=== PATIENT | female | born 1935 | race Caucasian/White ===

== ENCOUNTER 2017-02-02 05:17 | Inpatient (IN) | payer OTHER ==
[2017-01-21 10:52] VITALS: BMI 38.0
--- NOTE | 2017-01-21 11:26 | PAT Medication Instructions ---
Service Date Jan 21, 2017. Current Home Medication List Aspirin (Aspirin Ec), 81 MG PO HS Carvedilol (Coreg), 12.5 MG PO BID Cyanocobalamin (Vitamin B12), 1,000 MCG PO QAM Fish Oil ([place]-3), 1,000 MG PO QAM Hydrocodone/Acetaminophen 5MG/325MG ([place] 5MG/325MG), 1 TABLET PO BID PRN for N Lorazepam (Ativan), 0.5 MG PO HS PRN for RN Pravastatin (Pravachol ), 20 MG PO QPM [Losartan Hctz], 1 TAB PO QAM [Slow Release Iron], 1 TAB PO QAM Medication Instructions For Your Scheduled Surgery - Hold the following medications 2 weeks prior to surgery: Fish Oil ([place]-3), 1,000 MG PO QAM - Hold the following medications the morning of surgery: Cyanocobalamin (Vitamin B12), 1,000 MCG PO QAM [Losartan Hctz], 1 TAB PO QAM [Slow Release Iron], 1 TAB PO QAM - Take the following medications the morning of surgery with a sip of water: Carvedilol (Coreg), 12.5 MG PO BID Hydrocodone/Acetaminophen 5MG/325MG ([place] 5MG/325MG), 1 TABLET PO BID PRN (if needed, can take up to 4 hours before surgery) Lorazepam (Ativan), 0.5 MG PO HS PRN (if needed) - Take the following medications as scheduled the night before surgery: Aspirin (Aspirin Ec), 81 MG PO HS Carvedilol (Coreg), 12.5 MG PO BID Hydrocodone/Acetaminophen 5MG/325MG ([place] 5MG/325MG), 1 TABLET PO BID PRN (if needed, can take up to 4 hours before surgery) Lorazepam (Ativan), 0.5 MG PO HS PRN for RN Pravastatin (Pravachol ), 20 MG PO QPM If you have any questions please call us at [phone] or [phone] or [phone]
--- NOTE | 2017-01-21 12:11 | DIAGNOSTIC IMAGING REPORT ---
CHEST 2 VIEWS ROUTINE CLINICAL HISTORY: Preoperative chest COMPARISON STUDY: No previous studies for comparison. FINDINGS: The heart is normal in size. There is a retrocardiac opacity persist with a hiatal hernia. There is no failure. There is no focal pulmonary consolidation. There are no pleural effusions. There is a linear band within the right midlung zone likely representing subsegmental atelectasis.[ IMPRESSION: No active disease in the chest. Electronically signed by: Ovidio Foster M.D. 01/21/2017 12:10 PM Dictated Date/Time: 01/21/2017 12:09 PM
[2017-01-21 12:14] LABS: BASO % 0.9 %; BASO ABS # 0.04 K/uL (0-0.2); COMPLETE YES; EOS % 3.8 %; HEMATOCRIT 35.8 % (37-47); IG% 0.2 %; LYMPH % 24.6 %; LYMPH ABS # 1.11 K/uL (1.2-3.4); MEAN CELL VOLUME 95.5 fL (80-100); MEAN CORPUSCULAR HEMOGLOBIN 30.4 pg (25-34); MEAN CORPUSCULAR HGB CONC 31.8 g/dl (32-36); MEAN PLATELET VOLUME 10.5 fL (7.4-10.4); MONO % 6.9 %; NEUT % 63.6 %; PLATELET COUNT 181 K/uL (130-400); RED BLOOD COUNT 3.75 M/uL (4.2-5.4); WHITE BLOOD COUNT 4.52 K/uL (4.8-10.8)
[2017-01-21 13:45] LABS: BUN/CREATININE RATIO 18.9 (10-20); CALCIUM 9.3 mg/dl (8.5-10.1); CREATININE 1.2 mg/dl (0.60-1.20); POTASSIUM 4.6 mmol/L (3.5-5.1)
[2017-02-02] VITALS (9 sets, daily range): BP systolic 145–169; BP diastolic 65–82; PULSE 48–62; TEMP 36.3–36.5; O2SAT 96–100; Ht 160 cm; Wt 98.2 kg
[~2017-02-02] VITALS: Ht 160 cm; Wt 98.2 kg
[~2017-02-02 05:17] MED LIST: ASPI81TA28 PO; CARV12.52 PO; CYAN100020 PO; FERR143T5 PO; HYDR-5688 PO; LORA-741 PO; LOSA100T26 PO; OMEG10007 PO; PRAV20TA PO
[2017-02-02] MEDS ORDERED: CEFAZOLIN 2000 MG/60 ML D5W IV SCH (06:00)
[2017-02-02] MEDS ORDERED: LACTATED RINGER'S 1000ML 1,000 ML IV SCH (06:00)
[2017-02-02] MEDS ORDERED: MIDAZOLAM HCL 1 MG/ML 2ML VIAL ONE (06:33)
[2017-02-02] MEDS ORDERED: FENTANYL CITRATE INJ 50 MCG/1 ML 2 ML VIAL ONE ×3 (06:33→09:22)
[2017-02-02] MEDS ORDERED: BACITRACIN 50000 UNIT VIAL ONE (06:49)
[2017-02-02] MEDS ORDERED: BUPIVACAINE/EPINEPHRINE 0.5% MPF 1:200,000 30 ML VIAL ONE (06:49)
[2017-02-02] MEDS ORDERED: ALBUMIN HUMAN 5% 12.5 GM/250 ML VIAL IV ONE (07:11)
--- NOTE | 2017-02-02 07:28 | History & Physical Bridge Note ---
H&P Re-Evaluation Bridge Note: I have examined the patient, reviewed the History & Physical and in the interval since the performance of the History & Physical I have noted the following changes of clinical significance: No changes noted
--- NOTE | 2017-02-02 07:29 | History and Physical ---
History & Physical Date Feb 02, 2017. Chief Complaint Back and bilateral leg pain History of Present Illness The patient is a 81 year old female with complaints of chronic back and bilateral leg pain Additional History Hepatic Disease: No Endocrine Disorder: No Kidney Disease: No Hypertension: Yes Heart Disease: No Bleeding Tendencies: No Infectious Diseases: No Allergies Coded Allergies: Ciprofloxacin (Verified Allergy, Unknown, ITCHY RASH, 02/02/17) Home Medications Scheduled Aspirin (Aspirin Ec), 81 MG PO HS Carvedilol (Coreg), 12.5 MG PO BID Cyanocobalamin (Vitamin B12), 1,000 MCG PO QAM Ferrous Sulfate (Iron Slow Release), 1 TAB PO QAM Fish Oil ([place]-3), 1,000 MG PO QAM Hctz/Losartan (Hyzaar 12.5MG/100MG), 1 TAB PO QAM Pravastatin (Pravachol ), 20 MG PO QPM Scheduled PRN Hydrocodone/Acetaminophen 5MG/325MG ([place] 5MG/325MG), 1 TABLET PO BID PRN for N Lorazepam (Ativan), 0.5 MG PO HS PRN for RN Physical Examination Skin: warm/dry, no rash Eyes: normal inspection, EOMI, sclerae normal ENT: normal ENT inspection, pharynx normal Head: normocephalic, atraumatic Neck: supple, no adenopathy, trachea midline Respiratory/Chest: lungs clear, normal breath sounds, no respiratory distress Cardiovascular: regular rate, rhythm, no edema, no murmur Abdomen / GI: normal bowel sounds, non tender Back: normal inspection Extremities: normal inspection, normal range of motion Neurologic/Psych: no motor/sensory deficits, alert, normal reflexes, oriented x 3 Diagnosis Lumbar spinal stenosis Plan of Treatment Lumbar decompression fusion L3 to S1
[2017-02-02] MEDS ORDERED: HYDROmorphone INJ 2 MG/ML SYR/VIAL ONE ×3 (08:03→10:33)
[2017-02-02] MEDS ORDERED: PHENYLEPHRINE 100MCG/ML 5ML SYR IV PRN (08:15)
[2017-02-02] MEDS ORDERED: ONDANSETRON INJ 2 MG/ML 2 ML VIAL IV PRN ×2 (08:15→10:15)
[2017-02-02] MEDS ORDERED: ATROPINE SULFATE 0.1 MG/ML 5ML SYR IV PRN (08:15)
[2017-02-02] MEDS ORDERED: EpHEDrine SULFATE INJ 50 MG/ML AMP IV PRN (08:15)
[2017-02-02] MEDS ORDERED: HYDROmorphone INJ 2 MG/ML SYR/VIAL IV PRN (08:15)
[2017-02-02] MEDS ORDERED: DEXAMETHASONE SOD INJ 4 MG/ML VIAL ONE (09:52)
[2017-02-02] MEDS ORDERED: LIDOCAINE HCL 2% 2 ML VIAL (20MG/ML) ONE (09:52)
[2017-02-02] MEDS ORDERED: ROCURONIUM BROMIDE 10 MG/ML 5 ML VIAL IV ONE (09:52)
[2017-02-02] MEDS ORDERED: PROPOFOL IV EMULSION 10 MG/ML 20 ML VIAL IV ONE (09:52)
[2017-02-02] MEDS ORDERED: FLOSEAL HEMOSTATIC MATRIX 10ML TOP ONE (09:56)
[2017-02-02] MEDS ORDERED: GLYCOPYRROLATE INJ 0.2 MG/ML VIAL ONE (09:59)
[2017-02-02] MEDS ORDERED: NEOSTIGMINE METHYLSULFATE 1 MG/ML 10ML VIAL ONE (09:59)
[2017-02-02] MEDS ORDERED: EpHEDrine SULFATE 50MG/5ML SYR ONE (09:59)
[2017-02-02] MEDS ORDERED: ONDANSETRON INJ 2 MG/ML 2 ML VIAL ONE (09:59)
[2017-02-02] MEDS ORDERED: hydrOXYzine HCL 25 MG TAB PO PRN (10:15)
[2017-02-02] MEDS ORDERED: ACETAMINOPHEN IV 100 ML IV PRN (10:15)
[2017-02-02] MEDS ORDERED: NALOXONE HCL 0.4 MG/1 ML VIAL/CARP IV PRN ×2 (10:15)
[2017-02-02] MEDS ORDERED: DO NOT ADMINISTER PNEUMOCOCCAL VACCINE PRN ×2 (10:15)
[2017-02-02] MEDS ORDERED: ALUMINUM/MAGNESIUM SUSP 30 ML UDC PO PRN (10:15)
[2017-02-02] MEDS ORDERED: LORAZEPAM 0.5 MG TAB PO PRN (10:15)
[2017-02-02] MEDS ORDERED: MAGNESIUM HYDROXIDE SUSP 30 ML UDC PO PRN (10:15)
[2017-02-02] MEDS ORDERED: PROMETHAZINE HCL INJ 12.5 MG in SODIUM CHLORIDE 0.9% 50ML 50 ML IV PRN (10:15)
[2017-02-02] MEDS ORDERED: METOCLOPRAMIDE HCL INJ 5 MG/ML 2 ML VIAL IV PRN (10:15)
[2017-02-02] MEDS ORDERED: FAMOTIDINE 20 MG TAB PO PRN (10:15)
[2017-02-02] MEDS ORDERED: LORAZEPAM INJ 0.5 MG in SYRINGE 0 ML IV PRN (10:15)
[2017-02-02] MEDS ORDERED: SOD PHOSPHATE/SOD BIPHOSPHATE ENEMA 132 ML BTL PR PRN (10:15)
[2017-02-02] MEDS ORDERED: BISACODYL 10 MG SUPP PR PRN (10:15)
[2017-02-02] MEDS ORDERED: DO NOT ADMINISTER FLU VACCINE PRN ×3 (10:15)
[2017-02-02] MEDS ORDERED: SODIUM CHLORIDE 0.9% 1000ML 1,000 ML IV SCH (10:15)
--- NOTE | 2017-02-02 10:22 | [facility] Operative Report ---
Operative Report Operative Date Feb 02, 2017. Pre-Operative Diagnosis SPINAL STENOSIS Post-Operative Diagnosis SAME PREOP Procedure(s) Performed #1 lumbar decompression medial facetectomies foraminotomies L2 3 L3 4 L4 5 L5-S1. #2 posterior spinal fusion L3 4 L4 5 L5-S1. #3 placement posterior segmental instrumentation L3 to S1. #4 placement of locally harvested morcellized autograft in the posterior lateral gutters. #7 placement infuse collagen sponge commode Master graft in the posterior lateral gutters. Surgeon DR. BRO PYLE Geriatric Case Manager Surgeon(s) Janneth ESPINAL PAC Estimated Blood Loss 550ml Findings Severe spinal stenosis with spondylolisthesis Specimens NONE Description of Procedure Patient was met with preoperatively case discussed all questions were addressed. After informed consent obtained. The patient was taken back up suite underwent intubation placed in prone position the [place] table top Ugo frame. All bony prominences were well-padded eyes inspected to ensure no external pressure placed upon them. This point the lumbar spines prepped and draped nostril fashion. Sharp dissection with the assistance of Bovie cautery was performed onto an exposing the lamina and transverse processes of L3 L4-L5 and sacral alar bilaterally. From a caudal to cephalad fashion complete laminectomy of L5 L4 L3 partial laminectomy of L2 was performed addressing severe central lateral recessed foraminal stenosis. I did note incidental durotomy at the 45 level on the left where the bone had eroded through the dura. This repaired with a DuraGen patch and DuraSeal. Pedicle screws are then placed. Side rods were then locked in position. Cross-links were locked into position. The transverse processes of L3 L4-L5 and the sacral alar burred to subcortical bleeding bone. Infuse collagen sponge mask graft locally harvested morcellized autograft was placed in the posterior lateral gutters. 15 round DEUCE drain was inserted. Incision was closed with 1 Vicryl in the fascia 2-0 Vicryl subcutaneously for Monocryl for final skin closure Steri- Strip sterile dressing was placed. Patient we can taken to PACU stable condition. Please note Cheryl Mccormick was present at the past procedure involved in complex portions of the surgery and final skin closure. I attest to the content of the Intraoperative Record and any orders documented therein. Any exceptions are noted below.
--- NOTE | 2017-02-02 10:32 | DIAGNOSTIC IMAGING REPORT ---
LUMBAR SPINE 2 OR 3 VIEW CLINICAL HISTORY: 81 years-old Female presenting with L3-S1 DECOMPRESSION FUSION. TECHNIQUE: 2 fluoroscopic spot image(s) obtained as part of an intraoperative procedure. COMPARISON: None. FINDINGS/IMPRESSION: Posterior bilateral transpedicular screw and erasmo fixation of L3-S1. Grossly normal anatomic alignment. Please see surgical report for further details. Fluoroscopy dosage (mGy): Not available. Fluoroscopy time: 23 seconds. Number of fluoroscopic spot images: 2. Electronically signed by: Vasile Foster M.D. 02/02/2017 10:31 AM Dictated Date/Time: 02/02/2017 10:30 AM
[2017-02-02] MEDS ORDERED: HYDROmorphone HCL 0.5MG/ML 50 ML CASSETTE ONE (10:43)
--- NOTE | 2017-02-02 11:14 | Anesthesiology Progress Note ---
Anesthesia Post Op Note Date & Time Feb 02, 2017 at 11:14 Vital Signs Pain Intensity: 0 Vital Signs Past 12 Hours Date Time Temp Pulse Resp B/P (MAP) Pulse Ox O2 Delivery O2 Flow Rate FiO2 02/02/17 11:10 54 18 162/87 100 Nasal Cannula 4 02/02/17 11:00 57 20 155/61 100 Oxymask 10 02/02/17 10:50 61 18 157/68 100 Oxymask 10 02/02/17 10:41 36.3 71 16 138/59 100 Oxymask 10 02/02/17 06:07 36.5 60 20 162/77 99 Room Air Notes Mental Status: alert / awake / arousable, participated in evaluation Pt Amnestic to Procedure: Yes Nausea / Vomiting: adequately controlled Pain: adequately controlled Airway Patency, RR, SpO2: stable & adequate BP & HR: stable & adequate Hydration State: stable & adequate Anesthetic Complications: no major complications apparent
[2017-02-02] MEDS: SODIUM CHLORIDE 0.9% 1000ML 1,000 ML IV SCH ×3 (12:00→20:53)
[2017-02-02] MEDS: HYDROmorphone HCL 0.5MG/ML 50 ML CASSETTE IV PRN ×2 (15:16→22:52)
[2017-02-02] MEDS: CEFAZOLIN IV 2,000 MG in DEXTROSE 5% 50ML 50 ML IV SCH ×2 (16:58→23:38)
[2017-02-02] MEDS: DEXAMETHASONE INJ 6 MG in SYRINGE 0 ML IV SCH ×2 (16:59→23:38)
[2017-02-02] MEDS: DOCUSATE SODIUM/SENNA 50/8.6MG TAB PO SCH (20:53)
[2017-02-02] MEDS: CARVEDILOL 12.5 MG TAB PO SCH (20:54)
[2017-02-02] MEDS: PRAVASTATIN SOD 20 MG TAB PO SCH (20:54)
[2017-02-02] MEDS: ASPIRIN 81 MG ECTAB PO SCH (20:54)
[2017-02-03] VITALS (7 sets, daily range): BP systolic 117–182; BP diastolic 67–79; PULSE 54–74; TEMP 36.6–36.8; O2SAT 95–98
[2017-02-03] MEDS: SODIUM CHLORIDE 0.9% 1000ML 1,000 ML IV SCH (04:03)
[2017-02-03] MEDS ORDERED: HYDROmorphone INJ 0.5 MG/0.5 ML SYR IV PRN (06:00)
[2017-02-03] MEDS ORDERED: DC PCA SCH (06:00)
[2017-02-03] MEDS ORDERED: NURSING VERBAL MED ORDER ONE (06:00)
[2017-02-03] MEDS ORDERED: HYDROmorphone INJ 1 MG/ML SYR IV PRN (06:00)
[2017-02-03 06:06] LABS: HEMATOCRIT 26.9 % (37-47); IG% 0.1 %; LYMPH % 3.7 %; LYMPH ABS # 0.37 K/uL (1.2-3.4); MEAN CELL VOLUME 94.7 fL (80-100); MEAN CORPUSCULAR HGB CONC 32.7 g/dl (32-36); MEAN PLATELET VOLUME 10.5 fL (7.4-10.4); MONO % 2.7 %; NEUT % 93.5 %; PLATELET COUNT 135 K/uL (130-400); RED BLOOD COUNT 2.84 M/uL (4.2-5.4); WHITE BLOOD COUNT 10.02 K/uL (4.8-10.8)
[2017-02-03 06:39] LABS: BUN/CREATININE RATIO 18.7 (10-20); CALCIUM 8.2 mg/dl (8.5-10.1); CREATININE 1.1 mg/dl (0.60-1.20); POTASSIUM 4.1 mmol/L (3.5-5.1)
[2017-02-03 07:20] LABS: COMPLETE YES
--- NOTE | 2017-02-03 08:41 | Clinical Documentation Query ---
NARCISA Faustin : CLINICAL DOCUMENTATION QUERY Patient is a 81 year old female who underwent lumbosacral decompression and posterior spinal fusion. Preoperative hemoglobin and hematocrit were 11.4 g/dl and 35.8%. POD #1, repeat values are 8.8 g/dl and 26.9%. EBL for the procedure was 550 ml's with subsequently documented losses totaling an additional 245 ml's to date. Patient is being monitored with serial hematology and I/O including drain outputs. In your clinical opinion is this patient being managed for: ( ) Acute blood loss anemia ( ) Not Agree ( ) Other explanation of clinical findings (Please Explain) ( ) Unable to determine (Please Define) ( ) Need to Discuss The medical record reflects the following clinical findings, treatment, and risk factors. Clinical Indicators: As above Treatment:Patient is being monitored with serial hematology and I/O including drain outputs Risk Factors:Acute perioperative blood losses Please clarify and document your clinical opinion in the progress notes and discharge summary. Terms such as "probable", "suspected", "likely", "questionable", "possible", or "still to be ruled out" are acceptable. IF IN AGREEMENT, YOU MUST DOCUMENT ABOVE DIAGNOSTIC STATEMENT IN DAILY PROGRESS NOTES AND DISCHARGE SUMMARY. This document is not part of the patient's record. Thank You, Noe Reyes, BETY [phone]
[2017-02-03] MEDS: DEXAMETHASONE INJ 6 MG in SYRINGE 0 ML IV SCH (08:51)
[2017-02-03] MEDS: LOSARTAN POTASSIUM 50 MG TAB PO SCH (08:54)
[2017-02-03] MEDS: CARVEDILOL 12.5 MG TAB PO SCH ×2 (08:54→20:54)
[2017-02-03] MEDS: HYDROCHLOROTHIAZIDE 25 MG TAB PO SCH (08:55)
[2017-02-03] MEDS: OXYCODONE HCL IR 5 MG TAB (IMMEDIATE RELEASE) PO PRN ×3 (08:57→18:42)
--- NOTE | 2017-02-03 12:52 | Progress Note ---
Progress Note Date of Service Feb 03, 2017. Progress Note Patient is postop day #1. She is relatively comfortable. She denies any nausea vomiting or headaches. On exam she is neurologically intact DEUCE drain decreasing appropriately. Assessment status post lumbar decompression fusion replant this time will maintain bed rest today. She may elevate the bed for meals. Pending her progress today we may initiate transfers from bed to chair beginning tomorrow.
--- NOTE | 2017-02-03 13:21 | Anesthesiology Progress Note ---
Anesthesia Post Op Note Date & Time Feb 03, 2017 at 13:20 Vital Signs Vital Signs Past 12 Hours Date Time Temp Pulse Resp B/P (MAP) Pulse Ox O2 Delivery O2 Flow Rate FiO2 02/03/17 11:50 36.7 54 20 122/70 (87) 95 Room Air 02/03/17 07:15 Room Air 02/03/17 07:14 36.7 63 19 151/75 (100) 96 Room Air 02/03/17 04:41 60 155/79 (104) 95 Room Air 02/03/17 04:05 36.7 66 18 182/67 (105) 95 Room Air Notes Mental Status: alert / awake / arousable, participated in evaluation Pt Amnestic to Procedure: Yes Nausea / Vomiting: adequately controlled Pain: adequately controlled Airway Patency, RR, SpO2: stable & adequate BP & HR: stable & adequate Hydration State: stable & adequate Anesthetic Complications: no major complications apparent
[2017-02-03] MEDS: PRAVASTATIN SOD 20 MG TAB PO SCH (20:54)
[2017-02-03] MEDS: DOCUSATE SODIUM/SENNA 50/8.6MG TAB PO SCH (20:54)
[2017-02-03] MEDS: ASPIRIN 81 MG ECTAB PO SCH (20:54)
[2017-02-04] MEDS: OXYCODONE HCL IR 5 MG TAB (IMMEDIATE RELEASE) PO PRN ×4 (02:11→19:06)
[2017-02-04] MEDS: POLYETHYLENE (MIRALAX) 17 GM PACK PO SCH ×4 (05:43→23:54)
[2017-02-04 07:01] VITALS: BP 150/84; PULSE 61; TEMP 36.4; O2SAT 96
--- NOTE | 2017-02-04 08:26 | Progress Note ---
Progress Note Date of Service Feb 04, 2017. Progress Note Patient's back pain only. She denies any leg pain. Denies any nausea vomiting or headaches. On exam she is excellent strength testing is comfortable and sitting up in bed. Assessment status post lumbar decompression fusion. Plan at this time we will initiate bed to chair transfers as well as bathroom privileges today. We'll change her dressing DC drain.
[2017-02-04] MEDS: CARVEDILOL 12.5 MG TAB PO SCH ×2 (09:11→21:15)
[2017-02-04] MEDS: LOSARTAN POTASSIUM 50 MG TAB PO SCH (09:11)
[2017-02-04] MEDS: HYDROCHLOROTHIAZIDE 25 MG TAB PO SCH (09:11)
[2017-02-04 09:15] VITALS: BP 140/79; PULSE 71
[2017-02-04] MEDS: ACETAMINOPHEN 500 MG TAB PO PRN (09:18)
[2017-02-04 15:21] VITALS: BP 123/74; PULSE 65; TEMP 36.5; O2SAT 97
[2017-02-04] MEDS: DOCUSATE SODIUM/SENNA 50/8.6MG TAB PO SCH (21:00)
[2017-02-04] MEDS: PRAVASTATIN SOD 20 MG TAB PO SCH (21:15)
[2017-02-04] MEDS: ASPIRIN 81 MG ECTAB PO SCH (21:15)
[2017-02-04 21:16] VITALS: BP 123/75; PULSE 61
[2017-02-04 22:54] VITALS: BP 109/66; PULSE 59; TEMP 36.3; O2SAT 97
[2017-02-05] MEDS: POLYETHYLENE (MIRALAX) 17 GM PACK PO SCH ×3 (06:14→17:52)
[2017-02-05] MEDS: OXYCODONE HCL IR 5 MG TAB (IMMEDIATE RELEASE) PO PRN ×4 (06:18→21:21)
[2017-02-05 07:13] VITALS: BP 119/72; PULSE 65; TEMP 36.7; O2SAT 97
[2017-02-05] MEDS: ACETAMINOPHEN 500 MG TAB PO PRN ×2 (08:03→15:39)
[2017-02-05] MEDS: LOSARTAN POTASSIUM 50 MG TAB PO SCH (09:37)
[2017-02-05] MEDS: HYDROCHLOROTHIAZIDE 25 MG TAB PO SCH (09:38)
[2017-02-05] MEDS: CARVEDILOL 12.5 MG TAB PO SCH ×2 (09:38→21:12)
[2017-02-05 09:47] VITALS: BP 111/65; PULSE 68
--- NOTE | 2017-02-05 12:49 | Progress Note ---
Progress Note Date of Service Feb 05, 2017. Progress Note Back pain is controlled. Leg pain markedly improved. She denies nausea vomiting or headache. She has positive flatus but no BM at this time. On exam she is in chair at bedside has excellent strength testing. Assessment status post lumbar decompression fusion. Planned this time we will initiate physical therapy today and advance as tolerated over the weekend.
[2017-02-05 15:36] VITALS: BP 119/72; PULSE 67; TEMP 36.5; O2SAT 96
[2017-02-05] MEDS: ASPIRIN 81 MG ECTAB PO SCH (21:13)
[2017-02-05] MEDS: DOCUSATE SODIUM/SENNA 50/8.6MG TAB PO SCH (21:13)
[2017-02-05] MEDS: PRAVASTATIN SOD 20 MG TAB PO SCH (21:13)
[2017-02-05 23:18] VITALS: BP 118/69; PULSE 68; TEMP 36.4; O2SAT 99
[2017-02-06] MEDS: POLYETHYLENE (MIRALAX) 17 GM PACK PO SCH
[2017-02-06 00:15] VITALS: O2SAT 99
[2017-02-06] MEDS: OXYCODONE HCL IR 5 MG TAB (IMMEDIATE RELEASE) PO PRN ×5 (02:35→20:44)
[2017-02-06] MEDS ORDERED: NURSING VERBAL MED ORDER ONE (04:30)
[2017-02-06] MEDS: HYDROCHLOROTHIAZIDE 25 MG TAB PO SCH (07:48)
[2017-02-06] MEDS: CARVEDILOL 12.5 MG TAB PO SCH ×2 (07:49→20:45)
[2017-02-06] MEDS: LOSARTAN POTASSIUM 50 MG TAB PO SCH (07:49)
[2017-02-06 07:54] VITALS: BP 154/81; PULSE 72; TEMP 36.6; O2SAT 95
--- NOTE | 2017-02-06 10:13 | Progress Note ---
Progress Note Date of Service Feb 06, 2017. Progress Note Patient is complaining of back pain only. Denies any leg pain denies any numbness or tingling. She denies any nausea vomiting or headache. She did have a bowel movement yesterday. She is ambulating the halls. On exam she is good strength testing. She sitting in a chair comfortably. Assessment status post multilevel lumbar decompression fusion. Planned this time we'll initiate physical therapy occupational therapy anticipate discharge early next week.
[2017-02-06] MEDS ORDERED: KETOROLAC TROMETHAMINE 15 MG/ML VIAL IV. ONE (10:30)
[2017-02-06 15:52] VITALS: BP 106/68; PULSE 62; TEMP 36.3; O2SAT 98
[2017-02-06] MEDS: KETOROLAC TROMETHAMINE 15 MG/ML VIAL IV. PRN (18:56)
[2017-02-06 19:09] VITALS: BP 103/63; PULSE 68; TEMP 36.4; O2SAT 98
[2017-02-06 20:42] VITALS: BP 108/65; PULSE 65
[2017-02-06] MEDS: ASPIRIN 81 MG ECTAB PO SCH (20:44)
[2017-02-06] MEDS: PRAVASTATIN SOD 20 MG TAB PO SCH (20:44)
[2017-02-06] MEDS: DOCUSATE SODIUM/SENNA 50/8.6MG TAB PO SCH (20:45)
[2017-02-06 23:10] VITALS: BP 129/76; PULSE 62; TEMP 36.3; O2SAT 98
[2017-02-07] VITALS (17 sets, daily range): BP systolic 85–130; BP diastolic 53–73; PULSE 62–74; TEMP 36.5–37; O2SAT 93–97
[2017-02-07] MEDS: OXYCODONE HCL IR 5 MG TAB (IMMEDIATE RELEASE) PO PRN ×4 (03:00→19:10)
[2017-02-07 06:24] LABS: HEMATOCRIT 23.6 % (37-47)
[2017-02-07] MEDS: LOSARTAN POTASSIUM 50 MG TAB PO SCH (09:00)
[2017-02-07] MEDS: CARVEDILOL 12.5 MG TAB PO SCH ×2 (09:00→21:12)
[2017-02-07] MEDS: HYDROCHLOROTHIAZIDE 25 MG TAB PO SCH (09:00)
[2017-02-07] MEDS: KETOROLAC TROMETHAMINE 15 MG/ML VIAL IV. PRN (19:09)
[2017-02-07] MEDS: PRAVASTATIN SOD 20 MG TAB PO SCH (21:11)
[2017-02-07] MEDS: ASPIRIN 81 MG ECTAB PO SCH (21:11)
[2017-02-07] MEDS: DOCUSATE SODIUM/SENNA 50/8.6MG TAB PO SCH (21:13)
[2017-02-08 07:00] VITALS: BP 140/83; PULSE 117; PULSE 64; TEMP 36.5; O2SAT 98
[2017-02-08 07:43] LABS: BASO % 0.2 %; BASO ABS # 0.01 K/uL (0-0.2); COMPLETE YES; EOS % 4.4 %; HEMATOCRIT 27.7 % (37-47); IG% 0.4 %; LYMPH % 13.5 %; LYMPH ABS # 0.77 K/uL (1.2-3.4); MEAN CELL VOLUME 90.8 fL (80-100); MEAN CORPUSCULAR HEMOGLOBIN 31.1 pg (25-34); MEAN CORPUSCULAR HGB CONC 34.3 g/dl (32-36); MEAN PLATELET VOLUME 10.1 fL (7.4-10.4); MONO % 11.6 %; NEUT % 69.9 %; PLATELET COUNT 139 K/uL (130-400); RED BLOOD COUNT 3.05 M/uL (4.2-5.4); WHITE BLOOD COUNT 5.71 K/uL (4.8-10.8)
[2017-02-08 07:44] VITALS: PULSE 64
[2017-02-08] MEDS ORDERED: RXC5 PO (07:50)
--- NOTE | 2017-02-08 07:51 | Discharge Instructions ---
Discharge Instructions Date of Service Feb 08, 2017. Admission Reason for Admission: Lumbar Spinal Stenosis Discharge Discharge Diagnosis / Problem: post op lumbar fusion Discharge Goals Goal(s): Decrease discomfort, Improve function, Increase independence Activity Recommendations Activity Limitations: per Instructions/Follow-up section Lifting Limitations: no more than 5 pounds Shower/Bathe: tomorrow . Current Hospital Diet Patient's current hospital diet: Regular Diet Discharge Diet Recommended Diet: Regular Diet Procedures Procedures Performed: #1 lumbar decompression medial facetectomies foraminotomies L2 3 L3 4 L4 5 L5-S1. #2 posterior spinal fusion L3 4 L4 5 L5-S1. #3 placement posterior segmental instrumentation L3 to S1. #4 placement of locally harvested morcellized autograft in the posterior lateral gutters. #7 placement infuse collagen sponge commode Master graft in the posterior lateral gutters. Pending Studies Studies pending at discharge: no Medical Emergencies . Who to Call and When: Medical Emergencies: If at any time you feel your situation is an emergency, please call 911 immediately. . Non-Emergent Contact Non-Emergency issues call your: Primary Care Provider, Surgeon . "Provider Documentation" section prepared by Cheryl Mccormick. . VTE Core Measure Inpt VTE Proph given/why not?: Mikhail So
--- NOTE | 2017-02-08 07:53 | Discharge Instructions ---
Discharge Instructions Date of Service Feb 08, 2017. Admission Reason for Admission: Lumbar Spinal Stenosis Discharge Discharge Diagnosis / Problem: post op lumbar fusion Discharge Goals Goal(s): Decrease discomfort, Improve function, Increase independence Activity Recommendations Activity Limitations: per Instructions/Follow-up section Lifting Limitations: no more than 5 pounds Shower/Bathe: tomorrow . Instructions / Follow-Up Instructions / Follow-Up ACTIVITY RECOMMENDATIONS: SELF CARE INSTRUCTIONS AFTER THORACIC/LUMBAR FUSIONS 1. You may walk to your tolerance. It is good exercise for your legs and back. Expect some back and intermittent leg aches and pains. 2. You may perform "counter-top" level activities (make a sandwich, keenan with a project, etc.). 3. No bending or lifting of more than 10 pounds or back twisting of any nature (roll like a log when turning in bed). 4. You may ride in a car for 20-30 minutes at a time. No driving until after your first visit with your doctor. 5. Frequent changes of position and restricting sitting to 30 minutes at a time will help limit the amount of back spasms and stiffness you may experience. 6. You may discontinue the use of ambulatory aids (cane, crutches, etc.) once your strength and confidence allow. 7. You may architectural administrative assistant the shower and let water strike your incision when you arrive home at least once daily. Do not take a tub bath, sit in a hot tub or go into a swimming pool until after your first recheck in the office. SPECIAL CARE INSTRUCTIONS: VERY IMPORTANT TO READ AND REVIEW A. Your surgical incision has been closed with a cosmetic suture under the skin that will dissolve in about 6 weeks. In 14 days, you can use a pair of clean scissors and cut the suture that is left outside of the skin at the ends of your incision. 1. The small skin tapes can be removed 7 days after surgery if they have not fallen off by that point. 2. You may keep the wound open to air as much as possible to promote healing after post-op day number 5 unless told otherwise by your doctor. 3. If you think the wound looks like it is becoming infected (redness or worsening drainage) and/or you are experiencing fever, chill or worsening back pain and muscle spasms, contact the office so that we may evaluate you as soon as possible. B. Complications are uncommon, but please contact us if you have any signs or symptoms of: 1. wound infection (fever higher than 102.5 degrees F, redness, separation of wound, drainage, or increasing pain from the incision) 2. blood clots in legs (pain, swelling, redness and warmth in legs) 3. urinary tract infection (fever higher than 102.5 degrees F, burning upon urination or increased frequency of urination) 4. nerve problems (inability to walk on your toes or heels, numbness, loss of bowel or bladder control) 5. any other symptoms that concern you C. Please call the office at if you have any concerns or questions about your operation or recovery. D. No smoking! Smoking drastically decreases the chance of a solid fusion. E. Do not take any anti-inflammatory medications (Indocin, Advil, Motrin, Aspirin, Naprosyn, etc.) as these may inhibit the chance of a solid fusion. Tylenol is okay to take for pain. MANAGING PAIN AFTER SPINAL SURGERY 1. Narcotic medication is intended for short-term use and will be provided for surgical pain. Surgical pain usually lasts for a period of 4-6 weeks. Narcotic medication includes Percocet, Vicodin, Darvocet, Tylenol #3 or Lortab. 2. Longer-term pain is more appropriately treated with non-narcotic medication such as Tylenol ES. 3. Muscle spasm is not appropriately treated with narcotics. Muscle relaxers such as Soma, Flexeril or Skelaxin can be used along with Tylenol ES. 4. Remember that we all live with some "aches and pains". This is not unusual or uncommon after an injury or as we get older. a. Back pain is expected and may include muscle spasms for 4 to 6 weeks after surgery. The pain should gradually improve. If the pain worsens for no apparent reason, please contact the office. b. Intermittent leg pain may also be experienced and should not be concerned about unless it worsens for no apparent reason. If so, please contact the office. 5. We will provide appropriate medication within the normal guidelines of their prescribed use. We will also be very cautious and aware of potential abuse and extended duration of patients' medication needs. a. Pain medications are for your comfort and to assist with sleep and rest so that the tissue can heal. They are not provided in order to return to normal activity and should not be used through the day. To do so or worsening pain at night can result from ongoing tissue damage and development of tolerance to the prescribed medicine. 6. Please allow 2-3 days to process refills. Prescriptions will not be mailed but must be picked up at the office. FOLLOW UP VISIT: Keep your scheduled follow-up appointment. Any questions, please call the office at . Current Hospital Diet Patient's current hospital diet: Regular Diet Discharge Diet Recommended Diet: Regular Diet Procedures Procedures Performed: #1 lumbar decompression medial facetectomies foraminotomies L2 3 L3 4 L4 5 L5-S1. #2 posterior spinal fusion L3 4 L4 5 L5-S1. #3 placement posterior segmental instrumentation L3 to S1. #4 placement of locally harvested morcellized autograft in the posterior lateral gutters. #7 placement infuse collagen sponge commode Master graft in the posterior lateral gutters. Pending Studies Studies pending at discharge: no Medical Emergencies . Who to Call and When: Medical Emergencies: If at any time you feel your situation is an emergency, please call 911 immediately. . Non-Emergent Contact Non-Emergency issues call your: Primary Care Provider, Surgeon Call Non-Emergent contact if: you have a fever, your pain is not controlled, your pain is worsening, wound has increased drainage, wound has increased redness . "Provider Documentation" section prepared by Cheryl Mccormick. . VTE Core Measure Inpt VTE Proph given/why not?: Mikhail So
--- NOTE | 2017-02-08 07:57 | Discharge Summary ---
Orthopedic Discharge Summary Admission Date/Reason Feb 02, 2017 at 07:50 Lumbar Spinal Stenosis. Discharge Date/Disposition Feb 08, 2017 Home Diagnosis Principal Diagnosis: Lumbar spinal stenosis Procedure(s) Performed Lumbar decompression with instrumented fusion Medication Reconciliation New Medications: Oxycodone HCl (Oxycodone HCl) 5 Mg Tab 5-10 MG PO Q4H PRN for Moderate - severe pain, #90 TAB Continued Medications: Carvedilol (Coreg) 12.5 Mg Tab 12.5 MG PO BID, TAB Ferrous Sulfate (Iron Slow Release) 143 Mg Tab 1 TAB PO QAM Hctz/Losartan (Hyzaar 12.5MG/100MG) 1 Tab Tab 1 TAB PO QAM Lorazepam (Ativan) 0.5 Mg Tab 0.5 MG PO HS PRN for RN, TAB Pravastatin (Pravachol ) 20 Mg Tab 20 MG PO QPM, TAB Discontinued Medications: Aspirin (Aspirin Ec) 81 Mg Tab 81 MG PO HS Cyanocobalamin (Vitamin B12) 1,000 Mcg Tab 1000 MCG PO QAM Fish Oil ([place]-3) 1 Ea Cap 1000 MG PO QAM, CAP Hydrocodone/Acetaminophen 5MG/325MG ([place] 5MG/325MG) Tab 1 TABLET PO BID PRN for N, TAB PRN PAIN Admission Physical Exam As per Admitting History & Physical. Hospital Course Artie had a slow hospital course. She received 2 units of packed red blood cells yesterday due to postoperative anemia. Lab values are stable today. She is asymptomatic today. Therefore she is discharged home. She has had slow progression with physical therapy throughout her hospital stay. She is being discharged home with family. Discharge Instructions Please refer to the electronic Patient Visit Report (Discharge Instructions) for additional information.
[2017-02-08] MEDS: LOSARTAN POTASSIUM 50 MG TAB PO SCH (09:04)
[2017-02-08] MEDS: CARVEDILOL 12.5 MG TAB PO SCH (09:04)
[2017-02-08] MEDS: HYDROCHLOROTHIAZIDE 25 MG TAB PO SCH (09:04)
[2017-02-08] MEDS: OXYCODONE HCL IR 5 MG TAB (IMMEDIATE RELEASE) PO PRN ×2 (09:05→13:20)
[2017-02-08 10:03] VITALS: BP 140/83; PULSE 64; TEMP 36.5; O2SAT 98
[2017-02-08] MEDS: ACETAMINOPHEN 500 MG TAB PO PRN (15:19)
== END 2017-02-08 16:15 | disposition home or self-care (01) | DRG 460 ==
LOC: C.ACU 05:17 → C.3E 07:50 → ENRESERV 11:14 → UNDOADMIN 13:14 → C.3E 13:14
PROVIDERS: ADMIT Orthopaedic Surgery Orthopaedic Surgery of the Spine; ATTEND Orthopaedic Surgery Orthopaedic Surgery of the Spine
PROC: 0SG30J1 Fusion of Lumbosacral Joint with Synthetic Substitute, Posterior Approach, Posterior Column, Open Approach (ICD-10-PCS; principal; 2017-02-02 07:45)
DX: M48.07 Spinal stenosis, lumbosacral region (principal); D62 Acute posthemorrhagic anemia

== ENCOUNTER 2017-04-22 14:08 | Inpatient (IN) | payer OTHER ==
[~2017-04-22] VITALS: Ht 160 cm; Wt 95.7 kg
[~2017-04-22 14:08] MED LIST changes: -ASPI81TA28 PO; -CYAN100020 PO; -HYDR-5688 PO; -LOSA100T26 PO; +LOSA100T33 PO; -OMEG10007 PO; +RXC5 PO
[2017-04-22 15:45] VITALS: BP 160/90; PULSE 75; TEMP 36.6; O2SAT 97
[2017-04-22 15:51] VITALS: BP 160/90; PULSE 75; TEMP 36.6; BMI 37.4
[2017-04-22] MEDS ORDERED: METR-163 PO (16:54)
[2017-04-22] MEDS ORDERED: ASPI81TA28 PO (16:54)
[2017-04-22] MEDS ORDERED: ONDANSETRON INJ 2 MG/ML 2 ML VIAL IV PRN (17:15)
[2017-04-22] MEDS ORDERED: OXYCODONE HCL IR 5 MG TAB (IMMEDIATE RELEASE) PO PRN (17:30)
[2017-04-22] MEDS ORDERED: MoRPHine SULFATE 2 MG/ML CARP IV PRN (17:30)
[2017-04-22 17:34] LABS: HEMATOCRIT 28.6 % (37-47); HEMOGLOBIN 9.5 g/dL (12.0-16.0); MEAN CELL VOLUME 91.1 fL (80-100); MEAN CORPUSCULAR HEMOGLOBIN 30.3 pg (25-34); MEAN CORPUSCULAR HGB CONC 33.2 g/dl (32-36); MEAN PLATELET VOLUME 8.6 fL (7.4-10.4); PLATELET COUNT 201 K/uL (130-400); WHITE BLOOD COUNT 4.29 K/uL (4.8-10.8)
[2017-04-22] MEDS ORDERED: VANCOMYCIN CONSULT ACTIVE PRN (17:45)
[2017-04-22 17:57] LABS: PTT PATIENT 27.2 SECONDS (21.0-31.0)
[2017-04-22] MEDS ORDERED: VANCOMYCIN INJ 2,000 MG in SODIUM CHLORIDE 0.9% 500ML 500 ML IV ONE (18:00)
[2017-04-22 18:10] LABS: CALCIUM 8.9 mg/dl (8.5-10.1); CREATININE 1.07 mg/dl (0.60-1.20)
[2017-04-22 18:21] LABS: PHOSPHORUS 3.1 mg/dl (2.5-4.9)
--- NOTE | 2017-04-22 18:28 | DIAGNOSTIC IMAGING REPORT ---
ULTRASOUND BILATERAL LOWER EXTREMITY VENOUS CLINICAL HISTORY: Spinal abscess. Clinical concern for deep venous thrombosis. COMPARISON STUDY: No priors. TECHNIQUE: Real-time, grayscale, and color Doppler sonography of the deep veins of the right and left lower extremity was performed from the inguinal crease to the calf. Compression and augmentation were utilized. FINDINGS: There is no sonographic evidence of deep venous thrombosis identified in the right or left lower extremity. The common femoral, superficial femoral, and popliteal veins are patent and normally compressible bilaterally. The greater saphenous vein and the profunda femoris vein at the junction with the common femoral vein are clear in both legs. The visualized calf veins are patent bilaterally. IMPRESSION: There is no sonographic evidence of deep venous thrombosis identified in the right or left lower extremity. Electronically signed by: Anish Bateman M.D. 04/22/2017 6:27 PM Dictated Date/Time: 04/22/2017 6:25 PM
--- NOTE | 2017-04-22 18:39 | HISTORY & PHYSICAL EXAMINATION ---
DATE OF ADMISSION: 04/22/2017 PRIMARY CARE PHYSICIAN: Ekta Ansari CHIEF COMPLAINT: The patient was transferred from [facility] with lumbar seroma status post back surgery and also increasing pain and leg weakness. HISTORY OF PRESENT COMPLAINT: She is an 81-year-old female with significant past medical history of hypertension, CAD status post cardiac stent placement in 2004 without any cardiac symptoms, hyperlipidemia and chronic back pain, apparently was in [facility] from Wednesday. She was admitted to there with fall about 3 times, injuring her knees on Wednesday and when she was there, she was noted to have hyponatremia of 113 and she did have x-rays of the knees and those were unremarkable except the pelvis unremarkable, no fracture. Her hyponatremia was corrected and she has had problem with back pain and she also complained to have numbness involving both the legs. She underwent an MRI of the lumbar spine at [facility] and the MRI is reported as significant amount of hardware artifact limited evaluation, suggestion of extradural fluid collection posteriorly in the canal, extending from L3-L4 level to L5 level. From that point, she was transferred to [facility] for continuation of the care. Apparently, she underwent lumbar surgery on February 02 and following that she was doing reasonably good until Wednesday last and even before that when she was complaining of more pain while moving around with a walker and also she complained some numbness involving both the legs. Her ambulation has been limited due to numbness in the legs as she feels and also keeps falling and on top of that, she was noted to have hyponatremia which is being corrected as of today. She denies to have any chest pain, shortness of breath, palpitations. She does not have any fever, chills or rigors. She does not have any abdominal pain, nausea and/or vomiting. She denies to have any problem with urine and/or bowel habit. She complains to have numbness in the legs and leg heaviness, but she does not have any severe arthritis involving any of the joint and she also complains to have back pain without radiation of the pain to the legs. PAST MEDICAL HISTORY: Significant for hypertension; CAD status post cardiac stent placement, details of that is unknown, but that was 2004 and she has been asymptomatic since then and she has high cholesterol as well. PAST SURGICAL HISTORY: Cardiac stent placement, bilateral knee replacement and also malignant breast lumpectomy and status post radiation treatment in 1986. ALLERGIES: CIPRO. MEDICATIONS: At [facility], she was receiving morphine 4 mg q. 3 hourly p.r.n., Coreg 12.5 mg b.i.d., aspirin 81 mg daily, docusate sodium 100 mg twice daily, Flagyl 500 mg q. 8 hourly, heparin 5000 units twice daily, hydrocodone/Vicodin 5/300 one tablet q. 6 hourly p.r.n., senna 17.2 mg as directed, Zofran 4 mg q. 6 hourly p.r.n. and Tylenol 650 mg q. 6 hourly p.r.n. FAMILY HISTORY: Significant that brother has diabetes and also has an ischemic chronic CAD and his son has CAD as well. SOCIAL HISTORY: She is a . She lives alone. Her mobility has been decreased recently due to back pain and leg heaviness. She does not smoke and she does not drink. REVIEW OF SYSTEMS: Other systems reviewed are unremarkable except those mentioned in history of present complaint. PHYSICAL EXAMINATION: GENERAL: On examination on the medical floor, she was not having any acute distress. VITAL SIGNS: Temperature 36.6, pulse of 75, blood pressure 160/90, saturation 97% on room air. HEENT: Unremarkable. NECK: Supple. No JVD, no bruit. CHEST: Clear to auscultate bilaterally. HEART: S1, S2 regular, no murmur. ABDOMEN: Soft, benign, nontender, no organomegaly. Bowel sounds present. EXTREMITIES: She has 1+ edema, seems to be chronic bilaterally and she has bruising involving both the knee areas, more on the right than on the left. MUSCULOSKELETAL: She does not have any acute arthritis involving any of the joints. CENTRAL NERVOUS SYSTEM: She is alert, awake, oriented x3. She does not have any focal sensory and/or motor deficit on clinical examination, but she cannot lift her legs most likely because of the heaviness of the legs, but again no sensory impairment noted. BACK: Did show a bandaged area on the lower lumbar area with some soaking of the bandage. LABORATORY AND IMAGING DATA: Pending from this hospital - CBC, PRP, INR, PTT, but sodium noted to be 134 today at [facility]. Again, white count recorded as 5.8, hemoglobin 9.3, hematocrit 26.5, platelets 189. Sodium 137. She had an MRI at the lumbar spine, the report that was stated in the history of present complaint. Chest x-ray, no acute cardiopulmonary findings. Both the knee x-rays, no fracture. Pelvis x-ray, no fracture. EKG was in sinus rhythm, rate of 62, normal axis and no significant ST-T wave changes. IMPRESSION AND PLAN: 1. Chronic back pain with acute exacerbation, status post lumbar surgery in February 02. MRI shows a collection of fluid, most likely seroma, but no signs or symptoms of spinal involvement. She does not have any fever or chills. But will cover her with IV vancomycin on top of the oral medications that she has been taking. Wound care consult. Orthopedic has been consulted, most likely she will go for I&D tomorrow. She will be kept n.p.o. after midnight.Discussed with Dr Dumont. 2. Hypertension. Blood pressure seems to be on the upper side. Will continue with her current medications for blood pressure. Will hold Hyzaar due to recent Hyponatremia. 3.Hyponatremia ,now corrected.Was admitted to [facility] on Wednesday with hyponatremia of 113 and falls.Hyponatremia has been corrected as of today . Hyponatremia suspected due to HCTZ and may have been poor intake as well. 4. Coronary artery disease status post stent placement. No acute symptoms. Continue current medications. 5. High cholesterol. Continue home medication. 6. Gastrointestinal prophylaxis. Maalox and Mylanta as needed. 7. Deep venous thrombosis prophylaxis, has been on subQ heparin. Continue with that. 8. Code status. Full code for now . In my clinical judgment, the beneficiary meets criteria as per CMS for 2-midnight stay in the hospital. MTDD
[2017-04-22] MEDS: HEPARIN SOD 5000 UNIT/0.5 ML CARP SQ SCH (19:56)
[2017-04-22] MEDS: DOCUSATE SODIUM 100 MG CAP PO SCH (21:00)
[2017-04-22] MEDS: METRONIDAZOLE 500 MG TAB PO SCH (21:15)
[2017-04-22] MEDS: CARVEDILOL 12.5 MG TAB PO SCH (21:15)
[2017-04-22] MEDS: PRAVASTATIN SOD 20 MG TAB PO SCH (21:16)
[2017-04-22 21:49] VITALS: BP 140/78; TEMP 36.6; O2SAT 97
--- NOTE | 2017-04-22 21:57 | Pharmacy Progress Note ---
Pharmacy Abx Initial Consult Date of Service Apr 22, 2017. Pharmacy Dosing Scope Date of Consult: 04/22/17 Consultation requested by: Dr. Quispe Pharmacy is consulted to initiate Vancomycin IV dosing therapy, order appropriate labs and adjust drug dose/frequency. Subjective The patient is a 81 year old female admitted on Apr 22, 2017 at 15:55. Objective Height (Feet): 5 Height (Inches): 3.00 Weight (Kilograms): 95.700 Vital Signs (Past 12Hrs) Vital Signs Past 12 Hours Date Time Temp Pulse Resp B/P (MAP) Pulse Ox O2 Delivery O2 Flow Rate FiO2 04/22/17 16:45 Room Air 04/22/17 15:51 36.6 75 16 160/90 Room Air 04/22/17 15:45 36.6 75 18 160/90 (113) 97 Room Air Lab Results (24Hrs) Laboratory Tests (24 Hours) Test 04/22/17 17:22 White Blood Count 4.29 K/uL (4.8-10.8) L Risk Factors for Resistance * Hospitalization for 48 hours or more within the past 90 days Assessment & Plan Assessment Plan Vancomycin for treatment of possible cellulitis in lower lumbar area s/p lumbar surgery. Vancomycin IV * Loading dose: Vancomycin 2000 mg (20.9 mg/kg) IV x 1 dose given at 1900 today. * Maintenance dose: Vancomycin 1500 mg IV (15.7 mg/kg) every 24 hours * Estimated P'kinetics: t1/2 = 18 hrs, Ke = 0.038 /hr, Vd = 0.7 L/kg * Goal trough level for cellulitis: 15 to 20 mcg/mL * Trough level ordered for 04/25 @ 1330 Pharmacy will continue to follow and will adjust dose/frequency as necessary. Thank you.
[2017-04-22 23:00] VITALS: BP 131/75; PULSE 65; TEMP 36.6; O2SAT 98
[2017-04-23 07:07] VITALS: BP 160/77; PULSE 65; TEMP 36.5; O2SAT 96
[2017-04-23] MEDS: FERROUS SULFATE 325 MG TAB PO SCH (09:00)
[2017-04-23] MEDS: POLYETHYLENE (MIRALAX) 17 GM PACK PO SCH (09:00)
[2017-04-23] MEDS: DOCUSATE SODIUM 100 MG CAP PO SCH ×2 (09:00→21:00)
[2017-04-23] MEDS: METRONIDAZOLE 500 MG TAB PO SCH ×3 (09:09→21:27)
[2017-04-23] MEDS: CARVEDILOL 12.5 MG TAB PO SCH ×2 (09:09→21:27)
[2017-04-23 11:06] VITALS: Ht 160 cm; Wt 95.7 kg
[2017-04-23] MEDS ORDERED: HYDROCODONE/ACETAMIN 5/325MG TAB PO PRN (14:30)
--- NOTE | 2017-04-23 14:32 | Orthopedic Consultation ---
Orthopedic Consultation Date of Consultation: Apr 23, 2017. Attending Physician: Lorraine Ernst DO Reason for Consultation: Back pain and leg weakness History of Present Illness This is an 81-year-old female well-known to me having undergone a previous multilevel lumbar decompression fusion. She was admitted to this hospital with concerns of hyponatremia leg weakness and postop seroma. Examining her today in the company of her daughter and son. She describes back pain along the right upper buttock. She does not describe any leg pain. She expresses concern regarding inability to flex her right hip and weakness in her right quadricep. She has been able to and plate with a walker as long as there is assistance. She denies any bowel or bladder changes denies any numbness or tingling in the lower summaries. She describes constant numbness in the right upper thigh. This is not new. There are discussion she is relatively comfortable without significant back pain. Social History Smoking Status: Never Smoker Allergies Coded Allergies: Ciprofloxacin (Verified Allergy, Unknown, ITCHY RASH, 02/02/17) Home Medications Scheduled Aspirin (Aspirin Ec), 81 MG PO DAILY Carvedilol (Coreg), 12.5 MG PO BID Ferrous Sulfate (Iron Slow Release), 1 TAB PO QAM Hctz/Losartan (Hyzaar 12.5MG/100MG), 1 TAB PO QAM Metronidazole (Flagyl), 500 MG PO TID Pravastatin (Pravachol ), 20 MG PO QPM Scheduled PRN Lorazepam (Ativan), 0.5 MG PO HS PRN for RN Oxycodone HCl (Oxycodone HCl), 5-10 MG PO Q4H PRN for Moderate - severe pain Current Inpatient Medications Current Inpatient Medications Medications (Trade) Dose Ordered Sig/Tomi Route Start Time Stop Time Status Last Admin Dose Admin Heparin Sodium (Porcine) (Heparin Sq 5000 Unit/0.5ml) 5,000 unit Q8H SQ 04/22/17 20:00 05/22/17 19:59 Future hold 04/22/17 19:56 5,000 UNIT Ondansetron HCl (Zofran Inj) 4 mg Q6H PRN IV 04/22/17 17:15 05/22/17 17:14 Carvedilol (Coreg Tab) 12.5 mg BID PO 04/22/17 21:00 05/22/17 20:59 04/23/17 09:09 12.5 MG Metronidazole (Flagyl Tab) 500 mg TID PO 04/22/17 21:00 05/02/17 20:59 04/23/17 09:09 500 MG Oxycodone HCl (Roxicodone Immediate Rel Tab) 5 mg Q4H PRN PO 04/22/17 17:30 18 17:29 04/22/17 23:43 5 MG Pravastatin Sodium (Pravachol Tab) 20 mg QPM PO 04/22/17 21:00 05/22/17 20:59 04/22/17 21:16 20 MG Ferrous Sulfate (Feosol Tab) 325 mg QAM PO 04/23/17 09:00 05/23/17 08:59 Morphine Sulfate (MoRPHine SULFATE INJ) 2 mg Q3H PRN IV 04/22/17 17:30 05/06/17 17:29 Docusate Sodium (coLACE CAP) 100 mg BID PO 04/22/17 21:00 05/22/17 20:59 Polyethylene (Miralax Powder Packet) 17 gm DAILY PO 04/23/17 09:00 05/23/17 08:59 Vancomycin HCl (Consult) 1 ea UD PRN N/A 04/22/17 17:45 05/22/17 17:44 Vancomycin HCl 1500 mg/Sodium Chloride 530 ml @ 200 mls/hr Q24H IV 04/23/17 14:00 05/02/17 23:59 Physical Exam Date Time Temp Pulse Resp B/P (MAP) Pulse Ox O2 Delivery O2 Flow Rate FiO2 04/23/17 07:20 Room Air 04/23/17 07:07 36.5 65 19 160/77 (104) 96 Room Air 04/22/17 23:32 Room Air 04/22/17 23:00 36.6 65 16 131/75 (93) 98 Room Air 04/22/17 21:49 36.6 18 140/78 (98) 97 Room Air 04/22/17 16:45 Room Air 04/22/17 15:51 36.6 75 16 160/90 Room Air 04/22/17 15:45 36.6 75 18 160/90 (113) 97 Room Air Patient is sitting in chair at bedside. She exhibits +5 out of 5 left lower extremity plan flexion dorsiflexion quadriceps. Negative logroll on the left. On the right she does have weakness to right foot orthopedic dorsiflexion and quadriceps. She has difficulty with hip flexion. She has some sensory deficits the right anterior thigh compared to left. Distal sensation is intact. There is ecchymosis to the right lower extremity secondary to fall. Days ago. Again negative logroll on the right as well. No tension signs. Inspection lumbar spine reveals no evidence of erythema or drainage. She has new dressing placed from the wound clinic. There is some tenderness to palpation the right upper buttock compared to left. Laboratory Results Last 24 Hours Test 04/22/17 17:22 04/23/17 08:20 White Blood Count 4.29 K/uL Red Blood Count 3.14 M/uL Hemoglobin 9.5 g/dL Hematocrit 28.6 % Mean Corpuscular Volume 91.1 fL Mean Corpuscular Hemoglobin 30.3 pg Mean Corpuscular Hemoglobin Concent 33.2 g/dl RDW Standard Deviation 53.0 fL RDW Coefficient of Variation 16.0 % Platelet Count 201 K/uL Mean Platelet Volume 8.6 fL Prothrombin Time 10.2 SECONDS Prothromb Time International Ratio 1.0 Activated Partial Thromboplast Time 27.2 SECONDS Partial Thromboplastin Ratio 1.0 Sodium Level 132 mmol/L Potassium Level 5.0 mmol/L Chloride Level 100 mmol/L Carbon Dioxide Level 30 mmol/L Anion Gap 2.0 mmol/L Blood Urea Nitrogen 24 mg/dl Creatinine 1.07 mg/dl 1.00 mg/dl Est Creatinine Clear Calc Drug Dose 44.6 ml/min 47.7 ml/min Estimated GFR () 56.0 60.8 Estimated GFR (Non- 48.3 52.4 BUN/Creatinine Ratio 22.7 Random Glucose 97 mg/dl Calcium Level 8.9 mg/dl Phosphorus Level 3.1 mg/dl Magnesium Level 2.2 mg/dl Thyroid Stimulating Hormone (TSH) 4.360 uIu/ml Assessment & Plan Assessment postop seroma with superficial wound infection. Plan at this time I did have the opportunity finding review her MRI. There is evidence of a postop seroma with some thecal encroachment. If He Appeared to Be Severe in Nature but We Will Monitor Her Progress. We May Need to Consider I&D of the Seroma. My Concern Is Exposing Lumbar Spine through a Infected Superficial Wound. We Will Transition Her for Oxycodone to Hydrocodone Which She Prefers. The Wound Nurses Are Managing Her Superficial Incision at This Time. Discussed C4 Wound VAC and We'll Have This Discussion with the Infectious Disease Consultants. We' ll Continue to Monitor Her Neurologic Status. We'll Consult Physical Therapy to Begin Ambulation and Transfers.
[2017-04-23] MEDS: HEPARIN SOD 5000 UNIT/0.5 ML CARP SQ SCH (14:36)
[2017-04-23] MEDS: VANCOMYCIN INJ 1,500 MG in SODIUM CHLORIDE 0.9% 500ML 500 ML IV SCH (14:40)
--- NOTE | 2017-04-23 15:14 | DIAGNOSTIC IMAGING REPORT ---
LUMBAR SPINE 2 OR 3 VIEWS CLINICAL HISTORY: back pain COMPARISON STUDY: Lumbar spine outside hospital 04/17/2017. FINDINGS: Mild levoscoliosis of the lumbar spine which is likely positional. The sacrum is intact. There is 4 mm of anterolisthesis of L4 on L5, unchanged. Posterior decompression and fusion from L3 through S1 with pedicle screws and rods. The hardware appears intact. Mild to moderate disc space narrowing at L1-L2 and L2-L3, unchanged. There is also mild disc space narrowing seen within the lower thoracic spine. No acute fractures. IMPRESSION: 1. No acute fracture within the lumbar spine. 2. Degenerative and postoperative changes as described above are not significantly changed. Electronically signed by: Cal Bolton M.D. 04/23/2017 3:12 PM Dictated Date/Time: 04/23/2017 3:09 PM
[2017-04-23 15:44] VITALS: BP 147/77; PULSE 62; TEMP 36.7; O2SAT 97
--- NOTE | 2017-04-23 18:14 | Progress Note ---
Medicine Progress Note Date & Time of Visit: Apr 23, 2017 at 1300 Subjective 81 yo F s/p lumbar surgery with fusion on February 02 presented to OSH with persistent back pain, R leg numbness and falls. She was transferred here for evaluation by Ortho spine. She is currently NPO, denies nausea, vomiting or chest pain. She has a large healing area of ecchymosis on her R leo area which she states doesn't bother her. She denies abdominal pain, fevers or chills. Objective Last 8 Hrs Date Time Temp Pulse Resp B/P (MAP) Pulse Ox O2 Delivery O2 Flow Rate FiO2 04/23/17 15:44 36.7 62 16 147/77 (100) 97 Room Air Physical Exam: GEN: WNWD, in no acute distress, alert and appropriate HEENT: NC/AT, pupils are equal bilat, normal sclerae, MMM CARDIO: reg rate, S1/2 heard without m/g/r LUNGS: CTA bilaterally, no crackles, rales or wheezes, good diaphragmatic excursion ABD: soft, non-tender, non-distended, no rebound or guarding, +BS, some areas of ecchymosis 2/2 prior Lovenox injections in lower abdomen. EXTREMITY: RP and DP palpable 2+ bilat, no LE swelling or edema, extremities are warm and well-perfused. Ecchymosis that appears to be in various stages of healing present on R leo. BACK: superficial non-draining wound in lower back without surrounding erythema. Some R paraspinal and piriformis tenderness to palpation. NEURO: CN 2-12 grossly intact, sensation intact throughout, exam was limited MUSC: 5/5 strength in lower extremities SKIN: warm and dry and wounds/ecchymosis as above. Laboratory Results: 04/22/17 17:22 04/22/17 17:22 04/23/17 08:20 Test 04/22/17 17:22 04/23/17 08:20 Red Blood Count 3.14 M/uL (4.2-5.4) Mean Corpuscular Volume 91.1 fL (80-100) Mean Corpuscular Hemoglobin 30.3 pg (25-34) Mean Corpuscular Hemoglobin Concent 33.2 g/dl (32-36) RDW Standard Deviation 53.0 fL (36.4-46.3) RDW Coefficient of Variation 16.0 % (11.5-14.5) Mean Platelet Volume 8.6 fL (7.4-10.4) Prothrombin Time 10.2 SECONDS (9.0-12.0) Prothromb Time International Ratio 1.0 (0.9-1.1) Activated Partial Thromboplast Time 27.2 SECONDS (21.0-31.0) Partial Thromboplastin Ratio 1.0 Anion Gap 2.0 mmol/L (3-11) BUN/Creatinine Ratio 22.7 (10-20) Calcium Level 8.9 mg/dl (8.5-10.1) Phosphorus Level 3.1 mg/dl (2.5-4.9) Magnesium Level 2.2 mg/dl (1.8-2.4) Thyroid Stimulating Hormone (TSH) 4.360 uIu/ml (0.300-4.500) Est Creatinine Clear Calc Drug Dose 47.7 ml/min Estimated GFR () 60.8 Estimated GFR (Non- 52.4 Last 24 Hours Test 04/23/17 08:20 Creatinine 1.00 mg/dl Est Creatinine Clear Calc Drug Dose 47.7 ml/min Estimated GFR () 60.8 Estimated GFR (Non- 52.4 Assessment & Plan 81 yo F s/p lumbar surgery with fusion on February 02 presented to OSH with persistent back pain, R leg numbness and falls. She was transferred here for evaluation by Ortho spine. She is currently NPO, denies nausea, vomiting or chest pain. She has a large healing area of ecchymosis on her R leo area which she states doesn't bother her. She denies abdominal pain, fevers or chills. 1. Acute on chronic back pain with extradural fluid collection post- operatively consistent with post-op seroma. Dr. Dumont saw patient and is monitoring her now and considering conservative measures such as a wound vac. PT was ordered and supportive care with hydrocodone. He will discuss I&D options further with ID team. Wound care consult for superficial wound care. Fall precautions. 2. HTN-starting to increase off Hyzaar which was held in light of recent hyponatremia (113 during prior hospitalization). Will cont to hold HCTZ but will restart Losartan for better BP control now. 3. Hyponatremia ,now corrected to 132. Was admitted to [facility] 6 days ago with hyponatremia of 113 and falls. Confusion has resolved and nausea has also resolved. 4. Coronary artery disease status post stent placement. No acute symptoms. Cont Coreg, Losartan. ASA held in light of possible upcoming procedure. 5. High cholesterol. Continue pravachol. 6. Anemia-likely multifactorial including 2/2 chronic disease/inflammation and 2/2 blood loss post-operatively. Hb improved two grams since discharge post-op in Jan 2017. Cont to monitor. DVT proph-heparin switched to once daily Lovenox Full code Dispo-cont med/surg, uncertain at this time. Lorraine Ernst DO [facility] Hospitalist Consultants: [facility] Current Inpatient Medications: Current Inpatient Medications Medications (Trade) Dose Ordered Sig/Tomi Route Start Time Stop Time Status Last Admin Dose Admin Heparin Sodium (Porcine) (Heparin Sq 5000 Unit/0.5ml) 5,000 unit Q8H SQ 04/22/17 20:00 05/22/17 19:59 Future hold 04/23/17 14:36 5,000 UNIT Ondansetron HCl (Zofran Inj) 4 mg Q6H PRN IV 04/22/17 17:15 05/22/17 17:14 Carvedilol (Coreg Tab) 12.5 mg BID PO 04/22/17 21:00 05/22/17 20:59 04/23/17 09:09 12.5 MG Metronidazole (Flagyl Tab) 500 mg TID PO 04/22/17 21:00 05/02/17 20:59 04/23/17 14:31 500 MG Pravastatin Sodium (Pravachol Tab) 20 mg QPM PO 04/22/17 21:00 05/22/17 20:59 04/22/17 21:16 20 MG Ferrous Sulfate (Feosol Tab) 325 mg QAM PO 04/23/17 09:00 05/23/17 08:59 Morphine Sulfate (MoRPHine SULFATE INJ) 2 mg Q3H PRN IV 04/22/17 17:30 05/06/17 17:29 Docusate Sodium (coLACE CAP) 100 mg BID PO 04/22/17 21:00 05/22/17 20:59 Polyethylene (Miralax Powder Packet) 17 gm DAILY PO 04/23/17 09:00 05/23/17 08:59 Vancomycin HCl (Consult) 1 ea UD PRN N/A 04/22/17 17:45 05/22/17 17:44 Vancomycin HCl 1500 mg/Sodium Chloride 530 ml @ 200 mls/hr Q24H IV 04/23/17 14:00 05/02/17 23:59 04/23/17 14:40 200 MLS/HR Acetaminophen/ Hydrocodone Bitart ([place] 5/325 Tab) 1 tab Q4 PRN PO 04/23/17 14:30 05/07/17 14:29 Acetaminophen/ Hydrocodone Bitart ([place] 5/325 Tab) 2 tab Q4 PRN PO 04/23/17 14:30 05/07/17 14:29
[2017-04-23 21:22] VITALS: BP 153/85; PULSE 70; O2SAT 98
[2017-04-23] MEDS: PRAVASTATIN SOD 20 MG TAB PO SCH (21:27)
[2017-04-23] MEDS: HYDROCODONE/ACETAMIN 5/325MG TAB PO PRN (22:17)
[2017-04-23 23:26] VITALS: BP 133/70; PULSE 66; TEMP 36.6; O2SAT 97
[2017-04-24] MEDS: HYDROCODONE/ACETAMIN 5/325MG TAB PO PRN (06:58)
[2017-04-24 07:03] VITALS: BP 170/90; PULSE 66; TEMP 37; O2SAT 95
[2017-04-24 08:19] LABS: HEMATOCRIT 27.7 % (37-47); MEAN CELL VOLUME 91.4 fL (80-100); MEAN CORPUSCULAR HEMOGLOBIN 29.7 pg (25-34); MEAN CORPUSCULAR HGB CONC 32.5 g/dl (32-36); MEAN PLATELET VOLUME 9.2 fL (7.4-10.4); PLATELET COUNT 195 K/uL (130-400); RED CELL DISTRIBUTION WIDTH CV 16.3 % (11.5-14.5); RED CELL DISTRIBUTION WIDTH SD 54.3 fL (36.4-46.3); WHITE BLOOD COUNT 3.95 K/uL (4.8-10.8)
[2017-04-24] MEDS: DOCUSATE SODIUM 100 MG CAP PO SCH ×2 (08:40→20:36)
[2017-04-24 08:44] LABS: CALCIUM 8.9 mg/dl (8.5-10.1); POTASSIUM 4.3 mmol/L (3.5-5.1)
[2017-04-24] MEDS: POLYETHYLENE (MIRALAX) 17 GM PACK PO SCH (08:46)
[2017-04-24] MEDS: METRONIDAZOLE 500 MG TAB PO SCH ×3 (08:46→20:35)
[2017-04-24] MEDS: CARVEDILOL 12.5 MG TAB PO SCH ×2 (08:46→20:36)
[2017-04-24] MEDS: FERROUS SULFATE 325 MG TAB PO SCH (08:47)
[2017-04-24] MEDS: ENOXAPARIN 40 MG/0.4 ML SYR SQ SCH (08:51)
[2017-04-24] MEDS: LOSARTAN POTASSIUM 50 MG TAB PO SCH (08:51)
--- NOTE | 2017-04-24 10:30 | Progress Note ---
Progress Note Date of Service Apr 24, 2017. Progress Note Patient is sitting in a chair beside the bed this morning. She's been up and amatory with physical therapy. She still some back pain denies any leg pain. She does note numbness in the right thigh extending just below the knee. On exam she exhibits stronger right quadriceps plantar flexion dorsiflexion and yesterday afternoon. The incision is clean dry there is no erythema or drainage this morning. Assessment status post lumbar decompression fusion replant this time her x-rays demonstrate no change in alignment of her instrumentation. I was able to review the MRI again seroma is present but at this point is not warranted I&D. We are hoping that she'll be able to be transferred to [facility] in [facility] [place] early next week. I would like her in close proximity to my office in our hospital in the events she requires any surgical intervention. Also we will explore the possibility of an anti- depression medication.
[2017-04-24] MEDS: VANCOMYCIN INJ 1,500 MG in SODIUM CHLORIDE 0.9% 500ML 500 ML IV SCH (13:49)
[2017-04-24 15:03] VITALS: BP 123/71; PULSE 61; TEMP 36.6; O2SAT 98
[2017-04-24 15:47] VITALS: O2SAT 98
[2017-04-24] MEDS ORDERED: ERGOCALCIFEROL 50,000 INTER.UNIT CAP PO SCH (16:00)
[2017-04-24 20:30] VITALS: BP 133/73; PULSE 66; O2SAT 98
[2017-04-24] MEDS: PRAVASTATIN SOD 20 MG TAB PO SCH (20:36)
[2017-04-24 22:52] VITALS: BP 146/78; PULSE 73; TEMP 36.5; O2SAT 97
[2017-04-24] MEDS: hydrOXYzine HCL 25 MG TAB PO PRN (23:24)
[2017-04-25] VITALS (7 sets, daily range): BP systolic 129–168; BP diastolic 58–81; PULSE 56–70; TEMP 36.5–36.6; O2SAT 96–99
--- NOTE | 2017-04-25 00:09 | Progress Note ---
Medicine Progress Note Date & Time of Visit: Apr 24, 2017 at 15:45. Subjective 81 yo F s/p lumbar surgery with fusion on February 02 presented to OSH with persistent back pain, R leg numbness and falls. She was transferred here for evaluation by Ortho spine after 4 days in [facility] where she was being treated for a Na 113. She denies nausea, vomiting or chest pain. She has a large healing area of ecchymosis on her R leo area which she states doesn't bother her. She denies abdominal pain, fevers or chills. She still reports numbness in her R upper thigh and admits to depression. She is agreeable to an evaluation by Mental Health Objective Last 8 Hrs Date Time Temp Pulse Resp B/P (MAP) Pulse Ox O2 Delivery O2 Flow Rate FiO2 04/24/17 15:03 36.6 61 18 123/71 (88) 98 Room Air 04/24/17 09:39 Room Air Physical Exam: GEN: WNWD, in no acute distress, alert and appropriate HEENT: NC/AT, pupils are equal bilat, normal sclerae, MMM CARDIO: reg rate, S1/2 heard without m/g/r LUNGS: CTA bilaterally, no crackles, rales or wheezes, good diaphragmatic excursion ABD: soft, non-tender, non-distended, no rebound or guarding, +BS, some areas of ecchymosis 2/2 prior Lovenox injections in lower abdomen. EXTREMITY: RP and DP palpable 2+ bilat, no LE swelling or edema, extremities are warm and well-perfused. Ecchymosis that appears to be in various stages of healing present on R leo. BACK: improved paraspinal tenderness, gauze over wound which is c/d/i NEURO: CN 2-12 grossly intact, sensation intact throughout, exam was limited MUSC: moves all extremities relatively equally. SKIN: warm and dry and wounds/ecchymosis as above. Laboratory Results: 04/24/17 07:30 04/24/17 07:30 Test 04/22/17 17:22 04/24/17 07:30 Prothrombin Time 10.2 SECONDS (9.0-12.0) Prothromb Time International Ratio 1.0 (0.9-1.1) Activated Partial Thromboplast Time 27.2 SECONDS (21.0-31.0) Partial Thromboplastin Ratio 1.0 Phosphorus Level 3.1 mg/dl (2.5-4.9) Thyroid Stimulating Hormone (TSH) 4.360 uIu/ml (0.300-4.500) Red Blood Count 3.03 M/uL (4.2-5.4) Mean Corpuscular Volume 91.4 fL (80-100) Mean Corpuscular Hemoglobin 29.7 pg (25-34) Mean Corpuscular Hemoglobin Concent 32.5 g/dl (32-36) RDW Standard Deviation 54.3 fL (36.4-46.3) RDW Coefficient of Variation 16.3 % (11.5-14.5) Mean Platelet Volume 9.2 fL (7.4-10.4) Anion Gap 7.0 mmol/L (3-11) Est Creatinine Clear Calc Drug Dose 47.7 ml/min Estimated GFR () 60.8 Estimated GFR (Non- 52.4 BUN/Creatinine Ratio 23.6 (10-20) Calcium Level 8.9 mg/dl (8.5-10.1) Magnesium Level 2.3 mg/dl (1.8-2.4) Iron Level 95 mcg/dl (35-150) Total Iron Binding Capacity 229 mcg/dl (250-450) Ferritin 114.3 ng/ml (8.0-388.0) Vitamin B12 Level 1306 pg/mL (211-911) 25-Hydroxy Vitamin D Total 8.9 ng/ml (30-100) Folate 8.82 ng/mL (>5.38) Last 24 Hours Test 04/24/17 07:30 White Blood Count 3.95 K/uL Red Blood Count 3.03 M/uL Hemoglobin 9.0 g/dL Hematocrit 27.7 % Mean Corpuscular Volume 91.4 fL Mean Corpuscular Hemoglobin 29.7 pg Mean Corpuscular Hemoglobin Concent 32.5 g/dl RDW Standard Deviation 54.3 fL RDW Coefficient of Variation 16.3 % Platelet Count 195 K/uL Mean Platelet Volume 9.2 fL Sodium Level 135 mmol/L Potassium Level 4.3 mmol/L Chloride Level 101 mmol/L Carbon Dioxide Level 26 mmol/L Anion Gap 7.0 mmol/L Blood Urea Nitrogen 24 mg/dl Creatinine 1.00 mg/dl Est Creatinine Clear Calc Drug Dose 47.7 ml/min Estimated GFR () 60.8 Estimated GFR (Non- 52.4 BUN/Creatinine Ratio 23.6 Random Glucose 101 mg/dl Calcium Level 8.9 mg/dl Magnesium Level 2.3 mg/dl Iron Level 95 mcg/dl Total Iron Binding Capacity 229 mcg/dl Ferritin 114.3 ng/ml Vitamin B12 Level 1306 pg/mL 25-Hydroxy Vitamin D Total 8.9 ng/ml Folate 8.82 ng/mL Assessment & Plan 81 yo F s/p lumbar surgery with fusion on February 02 presented to OSH with persistent back pain, R leg numbness and falls. She was transferred here for evaluation by Ortho spine after 4 days in [facility] where she was being treated for a Na 113. She denies nausea, vomiting or chest pain. She has a large healing area of ecchymosis on her R leo area which she states doesn't bother her. She denies abdominal pain, fevers or chills. She still reports numbness in her R upper thigh and admits to depression. She is agreeable to an evaluation by Mental Health 1. Acute on chronic back pain with extradural fluid collection post- operatively consistent with post-op seroma. Dr. Dumont saw patient and is monitoring her now and considering conservative measures such as a wound vac. PT was ordered and supportive care with hydrocodone. No I&D is recommended at this time. Wound care consult for superficial wound care. Fall precautions. Will cont Vanc for now and will locate outpatient wound notes/cultures for assistance with oral abx selection. 2. HTN-starting to increase off Hyzaar which was held in light of recent hyponatremia (113 during prior hospitalization). Will cont to hold HCTZ but will restart Losartan for better BP control now. 3. Hyponatremia ,now corrected to 135. Confusion has resolved and nausea has also resolved. 4. Coronary artery disease status post stent placement. No acute symptoms. Cont Coreg, Losartan. ASA restarted at this time. 5. High cholesterol. Continue pravachol. 6. Anemia-likely multifactorial including 2/2 chronic disease/inflammation and 2/2 blood loss post-operatively. Hb improved two grams since discharge post-op in Jan 2017. Cont to monitor. DVT proph-heparin switched to once daily Lovenox Full code Dispo-cont med/surg, uncertain at this time. Lorraine Ernst DO [facility] Hospitalist Consultants: [facility] Current Inpatient Medications: Current Inpatient Medications Medications (Trade) Dose Ordered Sig/Tomi Route Start Time Stop Time Status Last Admin Dose Admin Ondansetron HCl (Zofran Inj) 4 mg Q6H PRN IV 04/22/17 17:15 05/22/17 17:14 Carvedilol (Coreg Tab) 12.5 mg BID PO 04/22/17 21:00 05/22/17 20:59 04/24/17 08:46 12.5 MG Metronidazole (Flagyl Tab) 500 mg TID PO 04/22/17 21:00 05/02/17 20:59 04/24/17 13:49 500 MG Pravastatin Sodium (Pravachol Tab) 20 mg QPM PO 04/22/17 21:00 05/22/17 20:59 04/23/17 21:27 20 MG Ferrous Sulfate (Feosol Tab) 325 mg QAM PO 04/23/17 09:00 05/23/17 08:59 04/24/17 08:47 325 MG Morphine Sulfate (MoRPHine SULFATE INJ) 2 mg Q3H PRN IV 04/22/17 17:30 05/06/17 17:29 Docusate Sodium (coLACE CAP) 100 mg BID PO 04/22/17 21:00 05/22/17 20:59 Polyethylene (Miralax Powder Packet) 17 gm DAILY PO 04/23/17 09:00 05/23/17 08:59 04/24/17 08:46 17 GM Vancomycin HCl (Consult) 1 ea UD PRN N/A 04/22/17 17:45 05/22/17 17:44 Vancomycin HCl 1500 mg/Sodium Chloride 530 ml @ 200 mls/hr Q24H IV 04/23/17 14:00 05/02/17 23:59 04/24/17 13:49 200 MLS/HR Acetaminophen/ Hydrocodone Bitart ([place] 5/325 Tab) 1 tab Q4 PRN PO 04/23/17 14:30 05/07/17 14:29 04/24/17 06:58 1 TAB Acetaminophen/ Hydrocodone Bitart ([place] 5/325 Tab) 2 tab Q4 PRN PO 04/23/17 14:30 05/07/17 14:29 Losartan Potassium (coZAAR TAB) 100 mg QAM PO 04/24/17 09:00 05/24/17 08:59 04/24/17 08:51 100 MG Enoxaparin Sodium (Lovenox Inj) 40 mg QAM SQ 04/24/17 09:00 05/24/17 08:59 04/24/17 08:51 40 MG Ergocalciferol (Vitamin D Cap) 50,000 interunit Sa@0900 PO 04/24/17 16:00 05/24/17 15:59
[2017-04-25 06:31] LABS: CREATININE 1.17 mg/dl (0.60-1.20)
[2017-04-25] MEDS: FERROUS SULFATE 325 MG TAB PO SCH (08:41)
[2017-04-25] MEDS: LOSARTAN POTASSIUM 50 MG TAB PO SCH (08:41)
[2017-04-25] MEDS: CARVEDILOL 12.5 MG TAB PO SCH ×2 (08:41→20:46)
[2017-04-25] MEDS: METRONIDAZOLE 500 MG TAB PO SCH ×3 (08:42→20:46)
[2017-04-25] MEDS: ENOXAPARIN 40 MG/0.4 ML SYR SQ SCH (08:42)
[2017-04-25] MEDS: POLYETHYLENE (MIRALAX) 17 GM PACK PO SCH (08:46)
[2017-04-25] MEDS: DOCUSATE SODIUM 100 MG CAP PO SCH ×2 (08:46→20:47)
[2017-04-25] MEDS ORDERED: NURSING VERBAL MED ORDER ONE (09:00)
[2017-04-25] MEDS ORDERED: ASPIRIN 81 MG ECTAB PO SCH (09:00)
--- NOTE | 2017-04-25 11:12 | Psychiatric Consultation ---
Consultation Date of Consultation Apr 25, 2017. Identifying Data Ms. Mcnair is an 81 yo female from [place]. Consult is by Dr. Ernst for depression screening. She was admitted on 04/22 with a spinal absess. Chief Complaint "I just want to get some better sleep". History of Present Illness patient was transferred from [facility] with lumbar seroma s/p back surgery. She was admitted there following 3 falls at home. She was found to be severely dehydrated due to feeling ill, having D due to antibiotics. Family relates that she was taking in more water as they were told to push fluids but they deny polydipsia. She screened negative for depression with a PHQ-9 of 4, mainly due to sleep disturbance which she relates to back pain. She has had some adjustment issues as her back issues caused her to miss some travel activities with the [employer] and she had to move in with son to have 1 story housing. She is bored from being in the hospital. She does fear loss of control but is hopeful that rehab will be helpful. Appetite is fair. Past Psychiatric History Current OP Treatment: no current treatment Prior OP Treatment: no prior treatment Access to a Gun: No Suicide Attempts: No Past Medication Trials none Past Medical/Surgical History (1) Lumbar stenosis with neurogenic claudication (2) HTN (hypertension) (3) Weakness of both legs (4) Seroma after procedure (5) Status post lumbar spine surgery for decompression of spinal cord Allergies Allergies: Coded Allergies: Ciprofloxacin (Verified Allergy, Unknown, ITCHY RASH, 02/02/17) Home Medications Scheduled Aspirin (Aspirin Ec), 81 MG PO DAILY Carvedilol (Coreg), 12.5 MG PO BID Ferrous Sulfate (Iron Slow Release), 1 TAB PO QAM Hctz/Losartan (Hyzaar 12.5MG/100MG), 1 TAB PO QAM Metronidazole (Flagyl), 500 MG PO TID Pravastatin (Pravachol ), 20 MG PO QPM Scheduled PRN Lorazepam (Ativan), 0.5 MG PO HS PRN for RN Oxycodone HCl (Oxycodone HCl), 5-10 MG PO Q4H PRN for Moderate - severe pain Family History History of Suicide: No History of Substance Abuse: No Psychiatric History: No reportedly abused ETOH Alcohol Use Alcohol Use In Past 12 Months: No Smoking Use Smoking Status: Never Smoker Substance History denied Personal History Childhood: [facility] Work History: retired, worked 30+ years at [employer] Information Relationship History: (since 1985) Children: 2 (son and rashad), family at bedside and confirmed reports Legal History: none Review of Systems Psych: denies symptoms other than stated above Constitutional: back pain Cardiovascular: denied GI: denied Remainder of 10 body systems also reviewed and denied other than noted above. Examination Vital Signs Vital Signs Past 12 Hours Date Time Temp Pulse Resp B/P (MAP) Pulse Ox O2 Delivery O2 Flow Rate FiO2 04/25/17 09:05 66 129/58 (81) 04/25/17 07:35 36.6 70 18 165/78 (107) 96 Room Air 04/25/17 07:18 Room Air 04/24/17 23:30 Room Air Laboratory Results Last 24 Hours Test 04/25/17 05:26 Creatinine 1.17 mg/dl Est Creatinine Clear Calc Drug Dose 40.8 ml/min Estimated GFR () 50.3 Estimated GFR (Non- 43.4 Mental Examination During interview pt is: alert and oriented Appearance: appropriately groomed Eye contact is: good Motor behavior is: no abnormal motor movements Speech: normal in rate, rhythm & volume Affect: euthymic Mood is: other ("OK but here") Thought process: clear, coherent Thought content: reality based without delusions Suicidal thought are: denied Homicidal thoughts are: denied Hallucinations: denies auditory, denies visual Cognition: attention grossly intact, language grossly intact Intelligence estimated to be: average Insight: fair Judgement: fair Impression / Recommendations Impression 81 yo female with sleep issues, some anxiety related to adjustment Recommendations no indication for inpatient psychiatric admission patient received low dose Vistaril last pm and felt it was helpful and sees no need for additional intervention at this time, was counseled re: risks of combined sedation with pain or other sedating medications, patient is ambulatory to bathroom at night no clear indication for immediate SSRI trial, I would likely avoid acutely anyway giving resolving hyponatremia as SSRIs can worsen
--- NOTE | 2017-04-25 11:13 | Psychiatric Consultation ---
Consultation Date of Consultation Apr 25, 2017. Identifying Data Ms. Mcnair is an 81 yo female from [place]. Consult is by Dr. Ernst for depression screening. She was admitted on 04/22 with a spinal absess. Chief Complaint "[]". History of Present Illness patient was transferred from [facility] with lumbar seroma s/p back surgery. She was admitted there following 3 falls at home. She was found to be severely dehydrated due to feeling ill, having D due to antibiotics. Family relates that she was taking in more water as they were told to push fluids but they deny polydipsia. She screened negative for depression with a PHQ-9 of 4, mainly due to sleep disturbance which she relates to back pain. She has had some adjustment issues as her back issues caused her to miss some travel activities with the [email or web address] [facility] and she had to move in with son to have 1 story housing. She is bored from being in the hospital. She does fear loss of control but is hopeful that rehab will be helpful. Appetite is fair. Past Psychiatric History Current OP Treatment: no current treatment Prior OP Treatment: no prior treatment Access to a Gun: No Suicide Attempts: No Allergies Allergies: Coded Allergies: Ciprofloxacin (Verified Allergy, Unknown, ITCHY RASH, 02/02/17) Home Medications Scheduled Aspirin (Aspirin Ec), 81 MG PO DAILY Carvedilol (Coreg), 12.5 MG PO BID Ferrous Sulfate (Iron Slow Release), 1 TAB PO QAM Hctz/Losartan (Hyzaar 12.5MG/100MG), 1 TAB PO QAM Metronidazole (Flagyl), 500 MG PO TID Pravastatin (Pravachol ), 20 MG PO QPM Scheduled PRN Lorazepam (Ativan), 0.5 MG PO HS PRN for RN Oxycodone HCl (Oxycodone HCl), 5-10 MG PO Q4H PRN for Moderate - severe pain Smoking Use Smoking Status: Never Smoker Personal History Relationship History: (since 1985) Children: 2 (son and rashad), family at bedside and confirmed reports Legal History: none Examination Vital Signs Vital Signs Past 12 Hours Date Time Temp Pulse Resp B/P (MAP) Pulse Ox O2 Delivery O2 Flow Rate FiO2 04/25/17 09:05 66 129/58 (81) 04/25/17 07:35 36.6 70 18 165/78 (107) 96 Room Air 04/25/17 07:18 Room Air 04/24/17 23:30 Room Air Laboratory Results Last 24 Hours Test 04/25/17 05:26 Creatinine 1.17 mg/dl Est Creatinine Clear Calc Drug Dose 40.8 ml/min Estimated GFR () 50.3 Estimated GFR (Non- 43.4 Mental Examination During interview pt is: alert and oriented Appearance: appropriately groomed Eye contact is: good Motor behavior is: no abnormal motor movements Speech: normal in rate, rhythm & volume Affect: euthymic Mood is: other ("OK but here") Thought process: clear, coherent Thought content: reality based without delusions Suicidal thought are: denied Homicidal thoughts are: denied Hallucinations: denies auditory, denies visual Cognition: attention grossly intact, language grossly intact Intelligence estimated to be: average Insight: fair Judgement: fair Impression / Recommendations Impression 81 yo female with sleep issues, some anxiety related to adjustment Risk Factors Assessment Access to guns: No Recommendations no indication for inpatient psychiatric admission patient received low dose Vistaril last pm and felt it was helpful and sees no need for additional intervention at this time, was counseled re: risks of combined sedation with pain or other sedating medications, patient is ambulatory to bathroom at night no clear indication for immediate SSRI trial, I would likely avoid acutely anyway giving resolving hyponatremia as SSRIs can worsen
--- NOTE | 2017-04-25 11:34 | Progress Note ---
Progress Note Date of Service Apr 25, 2017. Progress Note Patient is in chair bedside. Her family is the room. She has no back pain and leg pain. She describes some numbness the right quadriceps. On exam incision is healing nicely there is no erythema or drainage. Nontender palpation. She has good strength testing bilateral x-rays. She still exhibits some ecchymosis to the right lower extremity and swelling. This may contribute to some of her sensation changes. Otherwise she is a pressure progressing properly. We plan for discharge to [facility] next week
[2017-04-25] MEDS ORDERED: VANCOMYCIN TROUGH ONE (13:30)
[2017-04-25] MEDS: VANCOMYCIN INJ 1,500 MG in SODIUM CHLORIDE 0.9% 500ML 500 ML IV SCH (14:17)
--- NOTE | 2017-04-25 15:54 | Pharmacy Progress Note ---
Pharmacy Antibiotic Prog Note Date of Service Apr 25, 2017. Subjective The patient is currently receiving vancomycin 1500 mg IV every 24 hours. The patient is currently on day # 4 of vancomycin IV therapy. Objective Height (Feet): 5 Height (Inches): 3.00 Weight (Kilograms): 95.700 Lab Results (24hrs): Test 04/25/17 05:26 04/25/17 14:15 Creatinine 1.17 mg/dl (0.60-1.20) Est Creatinine Clear Calc Drug Dose 40.8 ml/min Estimated GFR () 50.3 Estimated GFR (Non- 43.4 Vancomycin Level Trough 18.1 mcg/ml (SEE COMMENT) Assessment & Plan Assessment * 81 yo F on vancomycin for cellulitis/surgical site infection s/p lumbar surgery January 2017. * SCr stable and at/near baseline Vancomycin dosing * Goal trough 15-20 mcg/mL * Trough of 18.1 mcg/mL is therapeutic - continue current vancomycin dose Plan * Continue vancomycin 1500 mg IV q24h * No additional vancomycin levels needed unless patient condition/renal function changes or therapy is continued beyond 7 days Pharmacy will continue to follow and will adjust dose/frequency as necessary. Thank you
--- NOTE | 2017-04-25 17:38 | Medical Consult ---
Consultation Date of Consultation: Apr 25, 2017. Attending Physician: Lorraine Ernst DO Reason for Consultation: Superficial postoperative wound infection, recommendation of antibiotics History of Present Illness 81-year-old female with history of hypertension, hyperlipidemia, coronary artery disease, who underwent lumbar surgery earlier this year with hardware placement. Apparently postoperatively developed superficial wound infection and was being followed at the [facility] and was given some type of antibiotic therapy and wound VAC. She re-presented to the hospital after several falls with increasing leg weakness with pain in her back and leg. Reportedly had MRI which showed significant fluid collection at the surgical site consistent with a seroma. She was transferred here for further management. She has been receiving IV vancomycin, and is also on oral Flagyl, no mention of C difficile infection in the records. She does not report any significant fever or chills. There is a report of previous culture showing Klebsiella and Enterobacter, suspect these were from wound cultures. No x- rays have been taken. Past Medical/Surgical History Medical Problems: (1) HTN (hypertension) (2) Lumbar stenosis with neurogenic claudication (3) Seroma after procedure (4) Weakness of both legs Surgical Problems: (1) Status post lumbar spine surgery for decompression of spinal cord Family History Noncontributory Social History Smoking Status: Never Smoker Allergies Coded Allergies: Ciprofloxacin (Verified Allergy, Unknown, ITCHY RASH, 02/02/17) Current Inpatient Medications Current Inpatient Medications Medications (Trade) Dose Ordered Sig/Tomi Route Start Time Stop Time Status Last Admin Dose Admin Ondansetron HCl (Zofran Inj) 4 mg Q6H PRN IV 04/22/17 17:15 05/22/17 17:14 Carvedilol (Coreg Tab) 12.5 mg BID PO 04/22/17 21:00 05/22/17 20:59 04/25/17 08:41 12.5 MG Metronidazole (Flagyl Tab) 500 mg TID PO 04/22/17 21:00 05/02/17 20:59 04/25/17 14:13 500 MG Pravastatin Sodium (Pravachol Tab) 20 mg QPM PO 04/22/17 21:00 05/22/17 20:59 04/24/17 20:36 20 MG Ferrous Sulfate (Feosol Tab) 325 mg QAM PO 04/23/17 09:00 1/28/18 08:59 04/25/17 08:41 325 MG Morphine Sulfate (MoRPHine SULFATE INJ) 2 mg Q3H PRN IV 04/22/17 17:30 05/06/17 17:29 Docusate Sodium (coLACE CAP) 100 mg BID PO 04/22/17 21:00 05/22/17 20:59 Polyethylene (Miralax Powder Packet) 17 gm DAILY PO 04/23/17 09:00 05/23/17 08:59 04/24/17 08:46 17 GM Vancomycin HCl (Consult) 1 ea UD PRN N/A 04/22/17 17:45 05/22/17 17:44 Vancomycin HCl 1500 mg/Sodium Chloride 530 ml @ 200 mls/hr Q24H IV 04/23/17 14:00 05/02/17 23:59 04/25/17 14:17 200 MLS/HR Acetaminophen/ Hydrocodone Bitart ([place] 5/325 Tab) 1 tab Q4 PRN PO 04/23/17 14:30 05/07/17 14:29 04/24/17 06:58 1 TAB Acetaminophen/ Hydrocodone Bitart ([place] 5/325 Tab) 2 tab Q4 PRN PO 04/23/17 14:30 05/07/17 14:29 Losartan Potassium (coZAAR TAB) 100 mg QAM PO 04/24/17 09:00 05/24/17 08:59 04/25/17 08:41 100 MG Enoxaparin Sodium (Lovenox Inj) 40 mg QAM SQ 04/24/17 09:00 05/24/17 08:59 04/25/17 08:42 40 MG Ergocalciferol (Vitamin D Cap) 50,000 interunit Sa@0900 PO 04/24/17 16:00 05/24/17 15:59 04/24/17 17:08 50,000 INTERUNIT Hydroxyzine HCl (Vistaril Tab) 25 mg HS PRN PO 04/24/17 22:00 05/24/17 21:59 04/24/17 23:24 25 MG Aspirin (Ecotrin Tab) 81 mg HS PO 04/25/17 21:00 05/25/17 20:59 Review of Systems All systems were reviewed and are negative except as per HPI Physical Exam Date Time Temp Pulse Resp B/P (MAP) Pulse Ox O2 Delivery O2 Flow Rate FiO2 12/31/17 17:01 97 Room Air 04/25/17 15:25 36.5 56 18 151/81 (104) 97 Room Air 04/25/17 09:05 66 129/58 (81) 04/25/17 07:35 36.6 70 18 165/78 (107) 96 Room Air 04/25/17 07:18 Room Air 04/24/17 23:30 Room Air 04/24/17 22:52 36.5 73 20 146/78 (100) 97 Room Air 04/24/17 20:30 66 133/73 (93) 98 Room Air General Appearance: WD/WN, no apparent distress Head: normocephalic, atraumatic Eyes: normal inspection, EOMI, sclerae normal ENT: normal ENT inspection, pharynx normal Neck: supple, no adenopathy, thyroid normal, trachea midline Respiratory/Chest: chest non-tender, lungs clear, normal breath sounds, no respiratory distress Cardiovascular: regular rate, rhythm, no gallop, no murmur Abdomen/GI: normal bowel sounds, non tender, soft, no organomegaly Back: normal inspection, no CVA tenderness Extremities/Musculoskelatal: normal capillary refill, non-tender Neurologic/Psych: alert, oriented x 3 Skin: normal color, no rash, + pertinent finding (Ecchymosis of leg from fall, small open lumbar wound without purulent drainage or surrounding erythema at) Lymphatic: no adenopathy Laboratory Results Last 24 Hours Test 04/25/17 05:26 04/25/17 14:15 Creatinine 1.17 mg/dl Est Creatinine Clear Calc Drug Dose 40.8 ml/min Estimated GFR () 50.3 Estimated GFR (Non- 43.4 Vancomycin Level Trough 18.1 mcg/ml Assessment & Plan 81-year-old female status post lumbar surgery with evidence of fluid collection at site of surgery, being followed that [facility] for surgical site infection with ongoing severe right leg pain and weakness. Given previous isolation, according to hospital notes, of Klebsiella and Enterobacter , have added ceftriaxone to vancomycin, but will need to obtain all records and culture results from [facility] the guide further therapy. Have ordered additional studies including sed rate, C reactive protein, and procalcitonin to further delineate severity of infection. Will discuss further management with Orthopedic surgery. Will follow.
[2017-04-25] MEDS: CEFTRIAXONE SOD INJ 2,000 MG in DEXTROSE 5% 50ML 50 ML IV SCH (18:34)
[2017-04-25] MEDS: PRAVASTATIN SOD 20 MG TAB PO SCH (20:46)
[2017-04-25] MEDS: ASPIRIN 81 MG ECTAB PO SCH (20:46)
--- NOTE | 2017-04-25 21:11 | Progress Note ---
Medicine Progress Note Date & Time of Visit: Apr 25, 2017 at 21:04. Subjective 81 yo F s/p lumbar surgery with fusion on February 02 presented to OSH with persistent back pain, R leg numbness and falls. She was transferred here for evaluation by Ortho spine after 4 days in [facility] where she was being treated for a Na 113 which has resolved to normal. She denies nausea, vomiting or chest pain. She has a large healing area of ecchymosis on her R leo area which she states doesn't bother her. She denies abdominal pain, fevers or chills. She still reports numbness in her R upper thigh and admits to depression. She was evaluated by MH today who does not recommend any medical therapy at this time. Apprec psych eval. ID was consulted with new recs to expand abx to ceftriaxone until all records are available. Tolerating PO, denies back pain at this time. Limited ability to ambulate. Objective Last 8 Hrs Date Time Temp Pulse Resp B/P (MAP) Pulse Ox O2 Delivery O2 Flow Rate FiO2 04/25/17 20:45 62 144/78 (100) 04/25/17 19:25 Room Air 04/25/17 17:01 97 Room Air 04/25/17 15:25 36.5 56 18 151/81 (104) 97 Room Air Physical Exam: GEN: WNWD, in no acute distress, alert and appropriate HEENT: NC/AT, pupils are equal bilat, normal sclerae, MMM CARDIO: reg rate, S1/2 heard without m/g/r LUNGS: CTA bilaterally, no crackles, rales or wheezes, good diaphragmatic excursion ABD: soft, non-tender, non-distended, no rebound or guarding, +BS, some areas of ecchymosis 2/2 prior Lovenox injections in lower abdomen. EXTREMITY: RP and DP palpable 2+ bilat, no LE swelling or edema, extremities are warm and well-perfused. Ecchymosis that appears to be in various stages of healing present on R leo. BACK: improved paraspinal tenderness,wound with one small clear drop of drainage-attempted to express for culture and it was more closed with nothing to express. No surrounding erythema. NEURO: CN 2-12 grossly intact, sensation intact throughout, exam was limited MUSC: moves all extremities relatively equally. SKIN: warm and dry and wounds/ecchymosis as above. Laboratory Results: 04/24/17 07:30 04/24/17 07:30 04/25/17 05:26 Test 04/22/17 17:22 04/24/17 07:30 04/25/17 05:26 04/25/17 14:15 Prothrombin Time 10.2 SECONDS (9.0-12.0) Prothromb Time International Ratio 1.0 (0.9-1.1) Activated Partial Thromboplast Time 27.2 SECONDS (21.0-31.0) Partial Thromboplastin Ratio 1.0 Phosphorus Level 3.1 mg/dl (2.5-4.9) Thyroid Stimulating Hormone (TSH) 4.360 uIu/ml (0.300-4.500) Red Blood Count 3.03 M/uL (4.2-5.4) Mean Corpuscular Volume 91.4 fL (80-100) Mean Corpuscular Hemoglobin 29.7 pg (25-34) Mean Corpuscular Hemoglobin Concent 32.5 g/dl (32-36) RDW Standard Deviation 54.3 fL (36.4-46.3) RDW Coefficient of Variation 16.3 % (11.5-14.5) Mean Platelet Volume 9.2 fL (7.4-10.4) Anion Gap 7.0 mmol/L (3-11) BUN/Creatinine Ratio 23.6 (10-20) Calcium Level 8.9 mg/dl (8.5-10.1) Magnesium Level 2.3 mg/dl (1.8-2.4) Iron Level 95 mcg/dl (35-150) Total Iron Binding Capacity 229 mcg/dl (250-450) Ferritin 114.3 ng/ml (8.0-388.0) Vitamin B12 Level 1306 pg/mL (211-911) 25-Hydroxy Vitamin D Total 8.9 ng/ml (30-100) Folate 8.82 ng/mL (>5.38) Est Creatinine Clear Calc Drug Dose 40.8 ml/min Estimated GFR () 50.3 Estimated GFR (Non- 43.4 Vancomycin Level Trough 18.1 mcg/ml (SEE COMMENT) Last 24 Hours Test 04/25/17 05:26 04/25/17 14:15 Creatinine 1.17 mg/dl Est Creatinine Clear Calc Drug Dose 40.8 ml/min Estimated GFR () 50.3 Estimated GFR (Non- 43.4 Vancomycin Level Trough 18.1 mcg/ml Assessment & Plan 81 yo F s/p lumbar surgery with fusion on February 02 presented to OSH with persistent back pain, R leg numbness and falls. She was transferred here for evaluation by Ortho spine after 4 days in [facility] where she was being treated for a Na 113 which has resolved to normal. She denies nausea, vomiting or chest pain. She has a large healing area of ecchymosis on her R leo area which she states doesn't bother her. She denies abdominal pain, fevers or chills. She still reports numbness in her R upper thigh and admits to depression. She was evaluated by MH today who does not recommend any medical therapy at this time. Apprec psych eval. ID was consulted with new recs to expand abx to ceftriaxone until all records are available. Tolerating PO, denies back pain at this time. Limited ability to ambulate. 1. Acute on chronic back pain with extradural fluid collection post- operatively consistent with post-op seroma. Per Dr. Dumont will cont with conservative measures and rehab at this time. ID was consulted and recommends expanding abx to include ceftriaxone based on prior culture data until all hospital records from [facility] can be obtained. Cont PT and wound care. 2. HTN- On hyzaar at home. Currently on Losartan in setting of recent low Na. BP increasing so adding back the HCTZ component at this time. 3. Hyponatremia ,now corrected to 135. Confusion has resolved and nausea has also resolved. 4. Coronary artery disease status post stent placement. No acute symptoms. Cont Coreg, Losartan, ASA 5. High cholesterol. Continue pravachol. 6. Anemia-likely multifactorial including 2/2 chronic disease/inflammation and 2/2 blood loss post-operatively. Hb improved two grams since discharge post-op in Jan 2017. Cont to monitor. DVT proph-heparin switched to once daily Lovenox Full code Dispo-cont med/surg, uncertain at this time. DO Froylan Christopher Hospitalist Consultants: [facility] Current Inpatient Medications: Current Inpatient Medications Medications (Trade) Dose Ordered Sig/Tomi Route Start Time Stop Time Status Last Admin Dose Admin Ondansetron HCl (Zofran Inj) 4 mg Q6H PRN IV 04/22/17 17:15 05/22/17 17:14 Carvedilol (Coreg Tab) 12.5 mg BID PO 04/22/17 21:00 05/22/17 20:59 04/25/17 20:46 12.5 MG Metronidazole (Flagyl Tab) 500 mg TID PO 04/22/17 21:00 05/02/17 20:59 04/25/17 20:46 500 MG Pravastatin Sodium (Pravachol Tab) 20 mg QPM PO 04/22/17 21:00 05/22/17 20:59 04/25/17 20:46 20 MG Ferrous Sulfate (Feosol Tab) 325 mg QAM PO 04/23/17 09:00 05/23/17 08:59 04/25/17 08:41 325 MG Morphine Sulfate (MoRPHine SULFATE INJ) 2 mg Q3H PRN IV 04/22/17 17:30 05/06/17 17:29 Docusate Sodium (coLACE CAP) 100 mg BID PO 04/22/17 21:00 05/22/17 20:59 Polyethylene (Miralax Powder Packet) 17 gm DAILY PO 04/23/17 09:00 05/23/17 08:59 04/24/17 08:46 17 GM Vancomycin HCl (Consult) 1 ea UD PRN N/A 04/22/17 17:45 05/22/17 17:44 Vancomycin HCl 1500 mg/Sodium Chloride 530 ml @ 200 mls/hr Q24H IV 04/23/17 14:00 05/02/17 23:59 04/25/17 14:17 200 MLS/HR Acetaminophen/ Hydrocodone Bitart ([place] 5/325 Tab) 1 tab Q4 PRN PO 04/23/17 14:30 05/07/17 14:29 04/24/17 06:58 1 TAB Acetaminophen/ Hydrocodone Bitart ([place] 5/325 Tab) 2 tab Q4 PRN PO 04/23/17 14:30 05/07/17 14:29 Losartan Potassium (coZAAR TAB) 100 mg QAM PO 04/24/17 09:00 05/24/17 08:59 04/25/17 08:41 100 MG Enoxaparin Sodium (Lovenox Inj) 40 mg QAM SQ 04/24/17 09:00 05/24/17 08:59 04/25/17 08:42 40 MG Ergocalciferol (Vitamin D Cap) 50,000 interunit Sa@0900 PO 04/24/17 16:00 05/24/17 15:59 04/24/17 17:08 50,000 INTERUNIT Hydroxyzine HCl (Vistaril Tab) 25 mg HS PRN PO 04/24/17 22:00 05/24/17 21:59 04/24/17 23:24 25 MG Aspirin (Ecotrin Tab) 81 mg HS PO 04/25/17 21:00 05/25/17 20:59 04/25/17 20:46 81 MG Ceftriaxone Sodium 2000 mg/ Dextrose 70 ml @ 100 mls/hr Q24H IV 04/25/17 18:00 06/06/17 17:59 04/25/17 18:34 100 MLS/HR
[2017-04-26] MEDS: hydrOXYzine HCL 25 MG TAB PO PRN ×2 (00:31→22:39)
[2017-04-26 06:55] LABS: CREATININE 1.05 mg/dl (0.60-1.20)
[2017-04-26 07:17] VITALS: BP 169/75; PULSE 56; TEMP 36.6; O2SAT 98
[2017-04-26] MEDS: POLYETHYLENE (MIRALAX) 17 GM PACK PO SCH (09:00)
[2017-04-26] MEDS: DOCUSATE SODIUM 100 MG CAP PO SCH ×2 (09:27→21:00)
[2017-04-26] MEDS: HYDROCHLOROTHIAZIDE 25 MG TAB PO SCH (09:28)
[2017-04-26] MEDS: ENOXAPARIN 40 MG/0.4 ML SYR SQ SCH (09:28)
[2017-04-26] MEDS: METRONIDAZOLE 500 MG TAB PO SCH ×3 (09:29→21:26)
[2017-04-26] MEDS: FERROUS SULFATE 325 MG TAB PO SCH (09:29)
[2017-04-26] MEDS: LOSARTAN POTASSIUM 50 MG TAB PO SCH (09:29)
[2017-04-26] MEDS: CARVEDILOL 12.5 MG TAB PO SCH ×2 (09:29→21:26)
--- NOTE | 2017-04-26 11:43 | Progress Note ---
Progress Note Date of Service Apr 26, 2017. Progress Note Patient's back pain is controlled. She has no leg pain. Still describes a numbing sensation to right upper thigh. On exam she sitting in chair. She is good strength testing lower extremities. Sensory is intact. Incision appears to be clean dry without erythema. Assessment status post lumbar decompression fusion replant this time hoping to discharge her to [facility] soon as tomorrow with the appropriate antibiotics per Dr. Tsang.
[2017-04-26] MEDS: VANCOMYCIN INJ 1,500 MG in SODIUM CHLORIDE 0.9% 500ML 500 ML IV SCH (13:37)
[2017-04-26 14:56] VITALS: BP 169/75; PULSE 56; O2SAT 98
[2017-04-26 15:25] VITALS: BP 145/75; PULSE 59; TEMP 36.4; O2SAT 96
[2017-04-26] MEDS: CEFTRIAXONE SOD INJ 2,000 MG in DEXTROSE 5% 50ML 50 ML IV SCH (18:03)
[2017-04-26 21:24] VITALS: BP 149/74; PULSE 62
[2017-04-26] MEDS: PRAVASTATIN SOD 20 MG TAB PO SCH (21:26)
[2017-04-26] MEDS: ASPIRIN 81 MG ECTAB PO SCH (21:26)
--- NOTE | 2017-04-26 23:04 | Progress Note ---
Medicine Progress Note Date & Time of Visit: Apr 26, 2017 at 13:09. Subjective 81 yo F s/p lumbar surgery with fusion on February 02 presented to OSH with persistent back pain, R leg numbness and falls. She was transferred here for evaluation by Ortho spine after 4 days in [facility] where she was being treated for a Na 113 which has resolved to normal. She denies nausea, vomiting or chest pain. She has a large healing area of ecchymosis on her R leo area which she states doesn't bother her. She continues to report R thigh numbness and requires 1-assist to ambulate. She denies back pain, fevers or chills. Her post op wound is closed and not draining. Tolerating PO. Objective Last 8 Hrs Date Time Temp Pulse Resp B/P (MAP) Pulse Ox O2 Delivery O2 Flow Rate FiO2 04/26/17 07:50 Room Air 04/26/17 07:17 36.6 56 16 169/75 (106) 98 Room Air Physical Exam: GEN: WNWD, in no acute distress, alert and appropriate HEENT: NC/AT, pupils are equal bilat, normal sclerae, MMM CARDIO: reg rate, S1/2 heard without m/g/r LUNGS: CTA bilaterally, no crackles, rales or wheezes, good diaphragmatic excursion ABD: soft, non-tender, non-distended, no rebound or guarding, +BS, some areas of ecchymosis 2/2 prior Lovenox injections in lower abdomen. EXTREMITY: RP and DP palpable 2+ bilat, no LE swelling or edema, extremities are warm and well-perfused. Ecchymosis that appears to be in various stages of healing present on R leo. BACK: improved paraspinal tenderness,wound with one small clear drop of drainage-attempted to express for culture and it was more closed with nothing to express. No surrounding erythema. NEURO: CN 2-12 grossly intact, sensation intact throughout, exam was limited MUSC: moves all extremities relatively equally. SKIN: warm and dry and wounds/ecchymosis as above. Laboratory Results: 04/24/17 07:30 04/24/17 07:30 04/26/17 05:31 Test 04/22/17 17:22 04/24/17 07:30 04/25/17 14:15 04/26/17 05:31 Prothrombin Time 10.2 SECONDS (9.0-12.0) Prothromb Time International Ratio 1.0 (0.9-1.1) Activated Partial Thromboplast Time 27.2 SECONDS (21.0-31.0) Partial Thromboplastin Ratio 1.0 Phosphorus Level 3.1 mg/dl (2.5-4.9) Thyroid Stimulating Hormone (TSH) 4.360 uIu/ml (0.300-4.500) Red Blood Count 3.03 M/uL (4.2-5.4) Mean Corpuscular Volume 91.4 fL (80-100) Mean Corpuscular Hemoglobin 29.7 pg (25-34) Mean Corpuscular Hemoglobin Concent 32.5 g/dl (32-36) RDW Standard Deviation 54.3 fL (36.4-46.3) RDW Coefficient of Variation 16.3 % (11.5-14.5) Mean Platelet Volume 9.2 fL (7.4-10.4) Anion Gap 7.0 mmol/L (3-11) BUN/Creatinine Ratio 23.6 (10-20) Calcium Level 8.9 mg/dl (8.5-10.1) Magnesium Level 2.3 mg/dl (1.8-2.4) Iron Level 95 mcg/dl (35-150) Total Iron Binding Capacity 229 mcg/dl (250-450) Ferritin 114.3 ng/ml (8.0-388.0) Vitamin B12 Level 1306 pg/mL (211-911) 25-Hydroxy Vitamin D Total 8.9 ng/ml (30-100) Folate 8.82 ng/mL (>5.38) Vancomycin Level Trough 18.1 mcg/ml (SEE COMMENT) Est Creatinine Clear Calc Drug Dose 45.5 ml/min Estimated GFR () 57.3 Estimated GFR (Non- 49.4 Last 24 Hours Test 04/25/17 14:15 04/26/17 05:31 Vancomycin Level Trough 18.1 mcg/ml Creatinine 1.05 mg/dl Est Creatinine Clear Calc Drug Dose 45.5 ml/min Estimated GFR () 57.3 Estimated GFR (Non- 49.4 Assessment & Plan 81 yo F s/p lumbar surgery with fusion on February 02 presented to OSH with persistent back pain, R leg numbness and falls. She was transferred here for evaluation by Ortho spine after 4 days in [facility] where she was being treated for a Na 113 which has resolved to normal. She denies nausea, vomiting or chest pain. She has a large healing area of ecchymosis on her R leo area which she states doesn't bother her. She continues to report R thigh numbness and requires 1-assist to ambulate. She denies back pain, fevers or chills. Her post op wound is closed and not draining. Tolerating PO. 1. Acute on chronic back pain with extradural fluid collection post- operatively consistent with post-op seroma. Per Dr. Dumont will cont with conservative measures and rehab at this time. ID was consulted and recommends expanding abx to include ceftriaxone based on prior culture data until all hospital records from [facility] can be obtained. Cont PT and wound care. 2. HTN- On hyzaar at home. Currently on Losartan in setting of recent low Na. BP increasing so adding back the HCTZ component at this time. 3. Hyponatremia ,now corrected to normal. Confusion has resolved and nausea has also resolved. 4. Coronary artery disease status post stent placement. No acute symptoms. Cont Coreg, Losartan, ASA 5. High cholesterol. Continue pravachol. 6. Anemia-likely multifactorial including 2/2 chronic disease/inflammation and 2/2 blood loss post-operatively. Stable. DVT proph-Lovenox Full code Dispo-cont med/surg, uncertain at this time. DO [facility] Hospital[facility] Consultants: [facility] Current Inpatient Medications: Current Inpatient Medications Medications (Trade) Dose Ordered Sig/Tomi Route Start Time Stop Time Status Last Admin Dose Admin Ondansetron HCl (Zofran Inj) 4 mg Q6H PRN IV 04/22/17 17:15 05/22/17 17:14 Carvedilol (Coreg Tab) 12.5 mg BID PO 04/22/17 21:00 05/22/17 20:59 04/26/17 09:29 12.5 MG Metronidazole (Flagyl Tab) 500 mg TID PO 04/22/17 21:00 05/02/17 20:59 04/26/17 09:29 500 MG Pravastatin Sodium (Pravachol Tab) 20 mg QPM PO 04/22/17 21:00 05/22/17 20:59 04/25/17 20:46 20 MG Ferrous Sulfate (Feosol Tab) 325 mg QAM PO 04/23/17 09:00 05/23/17 08:59 04/26/17 09:29 325 MG Morphine Sulfate (MoRPHine SULFATE INJ) 2 mg Q3H PRN IV 04/22/17 17:30 05/06/17 17:29 Docusate Sodium (coLACE CAP) 100 mg BID PO 04/22/17 21:00 05/22/17 20:59 04/26/17 09:27 100 MG Polyethylene (Miralax Powder Packet) 17 gm DAILY PO 04/23/17 09:00 05/23/17 08:59 04/24/17 08:46 17 GM Vancomycin HCl (Consult) 1 ea UD PRN N/A 04/22/17 17:45 05/22/17 17:44 Vancomycin HCl 1500 mg/Sodium Chloride 530 ml @ 200 mls/hr Q24H IV 04/23/17 14:00 05/02/17 23:59 04/25/17 14:17 200 MLS/HR Acetaminophen/ Hydrocodone Bitart ([place] 5/325 Tab) 1 tab Q4 PRN PO 04/23/17 14:30 05/07/17 14:29 04/24/17 06:58 1 TAB Acetaminophen/ Hydrocodone Bitart ([place] 5/325 Tab) 2 tab Q4 PRN PO 04/23/17 14:30 05/07/17 14:29 Losartan Potassium (coZAAR TAB) 100 mg QAM PO 04/24/17 09:00 05/24/17 08:59 04/26/17 09:29 100 MG Enoxaparin Sodium (Lovenox Inj) 40 mg QAM SQ 04/24/17 09:00 05/24/17 08:59 04/26/17 09:28 40 MG Ergocalciferol (Vitamin D Cap) 50,000 interunit Sa@0900 PO 04/24/17 16:00 05/24/17 15:59 04/24/17 17:08 50,000 INTERUNIT Hydroxyzine HCl (Vistaril Tab) 25 mg HS PRN PO 04/24/17 22:00 05/24/17 21:59 04/26/17 00:31 25 MG Aspirin (Ecotrin Tab) 81 mg HS PO 04/25/17 21:00 05/25/17 20:59 04/25/17 20:46 81 MG Ceftriaxone Sodium 2000 mg/ Dextrose 70 ml @ 100 mls/hr Q24H IV 04/25/17 18:00 06/06/17 17:59 04/25/17 18:34 100 MLS/HR Hydrochlorothiazide (Hydrochlorothiazide Tab) 12.5 mg DAILY PO 04/26/17 09:00 05/26/17 08:59 04/26/17 09:28 12.5 MG
[2017-04-26 23:35] VITALS: BP 126/68; PULSE 61; TEMP 36.7; O2SAT 97
[2017-04-27 06:36] LABS: HEMATOCRIT 29.6 % (37-47); HEMOGLOBIN 9.5 g/dL (12.0-16.0); MEAN CELL VOLUME 92.8 fL (80-100); MEAN CORPUSCULAR HEMOGLOBIN 29.8 pg (25-34); MEAN CORPUSCULAR HGB CONC 32.1 g/dl (32-36); MEAN PLATELET VOLUME 9.1 fL (7.4-10.4); PLATELET COUNT 208 K/uL (130-400); RED CELL DISTRIBUTION WIDTH CV 16.6 % (11.5-14.5); RED CELL DISTRIBUTION WIDTH SD 56.2 fL (36.4-46.3); WHITE BLOOD COUNT 4.14 K/uL (4.8-10.8)
[2017-04-27 06:49] VITALS: BP 127/70; PULSE 63; TEMP 36.9; O2SAT 96
[2017-04-27 07:07] LABS: CALCIUM 8.7 mg/dl (8.5-10.1); CREATININE 1.12 mg/dl (0.60-1.20); POTASSIUM 4.1 mmol/L (3.5-5.1)
[2017-04-27] MEDS: DOCUSATE SODIUM 100 MG CAP PO SCH ×2 (09:00→20:53)
[2017-04-27] MEDS: POLYETHYLENE (MIRALAX) 17 GM PACK PO SCH (09:00)
[2017-04-27] MEDS: ENOXAPARIN 40 MG/0.4 ML SYR SQ SCH (09:18)
[2017-04-27] MEDS: FERROUS SULFATE 325 MG TAB PO SCH (09:18)
[2017-04-27] MEDS: CARVEDILOL 12.5 MG TAB PO SCH ×2 (09:18→20:52)
[2017-04-27] MEDS: LOSARTAN POTASSIUM 50 MG TAB PO SCH (09:19)
[2017-04-27] MEDS: METRONIDAZOLE 500 MG TAB PO SCH ×3 (09:19→20:51)
[2017-04-27] MEDS: HYDROCHLOROTHIAZIDE 25 MG TAB PO SCH (09:19)
[2017-04-27] MEDS: VANCOMYCIN INJ 1,500 MG in SODIUM CHLORIDE 0.9% 500ML 500 ML IV SCH (13:34)
[2017-04-27 15:23] VITALS: BP 127/75; PULSE 69; TEMP 37.2; O2SAT 98
--- NOTE | 2017-04-27 17:39 | Progress Note ---
Subjective Date of Service: Apr 27, 2017. Subjective Pt evaluation today including: conversation w/ patient, physical exam, lab review, review of studies, review of inpatient medication list Saw/examined the patient in room 361 No back pain Seated in a chair denies fevers/chills LE weakness agreeable to rehab Review of Systems Constitutional: + weakness, + fatigue Respiratory: No shortness of breath Cardiac: No chest pain Abdomen: No pain, No nausea, No vomiting, No diarrhea Medications Current Inpatient Medications Medications (Trade) Dose Ordered Sig/Tomi Route Start Time Stop Time Status Last Admin Dose Admin Ondansetron HCl (Zofran Inj) 4 mg Q6H PRN IV 04/22/17 17:15 05/22/17 17:14 Carvedilol (Coreg Tab) 12.5 mg BID PO 04/22/17 21:00 05/22/17 20:59 04/27/17 09:18 12.5 MG Metronidazole (Flagyl Tab) 500 mg TID PO 04/22/17 21:00 05/02/17 20:59 04/27/17 13:34 500 MG Pravastatin Sodium (Pravachol Tab) 20 mg QPM PO 04/22/17 21:00 05/22/17 20:59 04/26/17 21:26 20 MG Ferrous Sulfate (Feosol Tab) 325 mg QAM PO 04/23/17 09:00 05/23/17 08:59 04/27/17 09:18 325 MG Morphine Sulfate (MoRPHine SULFATE INJ) 2 mg Q3H PRN IV 04/22/17 17:30 05/06/17 17:29 Docusate Sodium (coLACE CAP) 100 mg BID PO 04/22/17 21:00 05/22/17 20:59 04/26/17 09:27 100 MG Polyethylene (Miralax Powder Packet) 17 gm DAILY PO 04/23/17 09:00 05/23/17 08:59 04/24/17 08:46 17 GM Vancomycin HCl (Consult) 1 ea UD PRN N/A 04/22/17 17:45 05/22/17 17:44 Vancomycin HCl 1500 mg/Sodium Chloride 530 ml @ 200 mls/hr Q24H IV 04/23/17 14:00 05/02/17 23:59 04/27/17 13:34 200 MLS/HR Acetaminophen/ Hydrocodone Bitart ([place] 5/325 Tab) 1 tab Q4 PRN PO 04/23/17 14:30 05/07/17 14:29 04/24/17 06:58 1 TAB Acetaminophen/ Hydrocodone Bitart ([place] 5/325 Tab) 2 tab Q4 PRN PO 04/23/17 14:30 05/07/17 14:29 Losartan Potassium (coZAAR TAB) 100 mg QAM PO 04/24/17 09:00 05/24/17 08:59 04/27/17 09:19 100 MG Enoxaparin Sodium (Lovenox Inj) 40 mg QAM SQ 04/24/17 09:00 05/24/17 08:59 04/27/17 09:18 40 MG Ergocalciferol (Vitamin D Cap) 50,000 interunit Sa@0900 PO 04/24/17 16:00 05/24/17 15:59 04/24/17 17:08 50,000 INTERUNIT Hydroxyzine HCl (Vistaril Tab) 25 mg HS PRN PO 04/24/17 22:00 05/24/17 21:59 04/26/17 22:39 25 MG Aspirin (Ecotrin Tab) 81 mg HS PO 04/25/17 21:00 05/25/17 20:59 04/26/17 21:26 81 MG Ceftriaxone Sodium 2000 mg/ Dextrose 70 ml @ 100 mls/hr Q24H IV 04/25/17 18:00 06/06/17 17:59 04/26/17 18:03 100 MLS/HR Hydrochlorothiazide (Hydrochlorothiazide Tab) 12.5 mg DAILY PO 04/26/17 09:00 05/26/17 08:59 04/27/17 09:19 12.5 MG Objective Vital Signs Date Time Temp Pulse Resp B/P (MAP) Pulse Ox O2 Delivery O2 Flow Rate FiO2 04/27/17 15:23 37.2 69 16 127/75 (92) 98 Room Air 04/27/17 15:00 Room Air 04/27/17 07:45 Room Air 04/27/17 06:49 36.9 63 19 127/70 (89) 96 Room Air 04/26/17 23:35 Room Air 04/26/17 23:35 36.7 61 16 126/68 (87) 97 Room Air 04/26/17 21:24 62 149/74 (99) Physical Exam General Appearance: no apparent distress Respiratory/Chest: no respiratory distress, no accessory muscle use Cardiovascular: regular rate, rhythm Abdomen: normal bowel sounds, non tender, soft Extremities: + pertinent finding (+2 pitting edema b/l LE) Laboratory Results Last 24 Hours Test 04/27/17 05:58 White Blood Count 4.14 K/uL Red Blood Count 3.19 M/uL Hemoglobin 9.5 g/dL Hematocrit 29.6 % Mean Corpuscular Volume 92.8 fL Mean Corpuscular Hemoglobin 29.8 pg Mean Corpuscular Hemoglobin Concent 32.1 g/dl RDW Standard Deviation 56.2 fL RDW Coefficient of Variation 16.6 % Platelet Count 208 K/uL Mean Platelet Volume 9.1 fL Erythrocyte Sedimentation Rate 41 mm/hr Sodium Level 135 mmol/L Potassium Level 4.1 mmol/L Chloride Level 104 mmol/L Carbon Dioxide Level 26 mmol/L Anion Gap 5.0 mmol/L Blood Urea Nitrogen 23 mg/dl Creatinine 1.12 mg/dl Est Creatinine Clear Calc Drug Dose 42.6 ml/min Estimated GFR () 53.0 Estimated GFR (Non- 45.7 BUN/Creatinine Ratio 20.9 Random Glucose 89 mg/dl Calcium Level 8.7 mg/dl C-Reactive Protein 0.45 mg/dl Assessment and Plan This is an 81 year old female with a PMH of lumbar surgery on February 02, HTN, HLD, CAD s/p stent, chronic anemia, recent hyponatremia episode - presents with worsening lower extremity pain Post-Operative Seroma RLE weakness, possibly secondary to seroma orthopedic surgery recommends conservative management PT/OT - rehab when stable appreciate ID input - for now on Rocephin + Vancomycin + Flagyl will need oral abx. upon discharge HTN sodium stable continue HCTZ and Cozaar BP improving CAD s/p stents continue current home medications; aspirin, b-jacy, Cozaar Chronic Anemia Hgb stable DVT ppx Lovenox FULL CODE
[2017-04-27] MEDS: CEFTRIAXONE SOD INJ 2,000 MG in DEXTROSE 5% 50ML 50 ML IV SCH (18:08)
[2017-04-27 20:50] VITALS: BP 164/76; PULSE 69
[2017-04-27] MEDS: PRAVASTATIN SOD 20 MG TAB PO SCH (20:51)
[2017-04-27] MEDS: ASPIRIN 81 MG ECTAB PO SCH (20:52)
[2017-04-27] MEDS: HYDROCODONE/ACETAMIN 5/325MG TAB PO PRN (21:56)
[2017-04-27 22:50] VITALS: BP 130/75; PULSE 65; TEMP 36.7; O2SAT 98
[2017-04-28 07:45] VITALS: BP 168/83; PULSE 68; TEMP 36.7; O2SAT 97
[2017-04-28 08:18] VITALS: O2SAT 97
[2017-04-28 08:19] LABS: HEMATOCRIT 31.3 % (37-47); HEMOGLOBIN 10.3 g/dL (12.0-16.0); MEAN CELL VOLUME 93.7 fL (80-100); MEAN CORPUSCULAR HEMOGLOBIN 30.8 pg (25-34); MEAN CORPUSCULAR HGB CONC 32.9 g/dl (32-36); MEAN PLATELET VOLUME 9.2 fL (7.4-10.4); PLATELET COUNT 191 K/uL (130-400); RED CELL DISTRIBUTION WIDTH CV 17.1 % (11.5-14.5); RED CELL DISTRIBUTION WIDTH SD 57.7 fL (36.4-46.3); WHITE BLOOD COUNT 4.28 K/uL (4.8-10.8)
[2017-04-28] MEDS: DOCUSATE SODIUM 100 MG CAP PO SCH (09:00)
[2017-04-28] MEDS: POLYETHYLENE (MIRALAX) 17 GM PACK PO SCH (09:00)
[2017-04-28 09:16] LABS: CREATININE 1.12 mg/dl (0.60-1.20); POTASSIUM 4.1 mmol/L (3.5-5.1)
[2017-04-28] MEDS: ENOXAPARIN 40 MG/0.4 ML SYR SQ SCH (09:50)
[2017-04-28] MEDS: CARVEDILOL 12.5 MG TAB PO SCH (09:50)
[2017-04-28] MEDS: METRONIDAZOLE 500 MG TAB PO SCH (09:51)
[2017-04-28] MEDS: FERROUS SULFATE 325 MG TAB PO SCH (09:51)
[2017-04-28] MEDS: LOSARTAN POTASSIUM 50 MG TAB PO SCH (09:51)
[2017-04-28] MEDS: HYDROCHLOROTHIAZIDE 25 MG TAB PO SCH (09:52)
--- NOTE | 2017-04-28 10:13 | Infectious Disease Progress Nt ---
Progress Note Date of Service Apr 28, 2017. Subjective Pt evaluation today including: conversation w/ patient, physical exam, chart review, lab review, review of studies, conversation w/ solutions consultant, review of inpatient medication list Patient still complaining of numbness in her right thigh, otherwise offers no new complaints. Feels otherwise well. No fever. All Other Systems: Reviewed and Negative Medications Current Inpatient Medications Medications (Trade) Dose Ordered Sig/Tomi Route Start Time Stop Time Status Last Admin Dose Admin Ondansetron HCl (Zofran Inj) 4 mg Q6H PRN IV 04/22/17 17:15 05/22/17 17:14 Carvedilol (Coreg Tab) 12.5 mg BID PO 04/22/17 21:00 05/22/17 20:59 04/28/17 09:50 12.5 MG Metronidazole (Flagyl Tab) 500 mg TID PO 04/22/17 21:00 05/02/17 20:59 04/28/17 09:51 500 MG Pravastatin Sodium (Pravachol Tab) 20 mg QPM PO 04/22/17 21:00 05/22/17 20:59 04/27/17 20:51 20 MG Ferrous Sulfate (Feosol Tab) 325 mg QAM PO 04/23/17 09:00 05/23/17 08:59 04/28/17 09:51 325 MG Morphine Sulfate (MoRPHine SULFATE INJ) 2 mg Q3H PRN IV 04/22/17 17:30 05/06/17 17:29 Docusate Sodium (coLACE CAP) 100 mg BID PO 04/22/17 21:00 05/22/17 20:59 04/26/17 09:27 100 MG Polyethylene (Miralax Powder Packet) 17 gm DAILY PO 04/23/17 09:00 05/23/17 08:59 04/24/17 08:46 17 GM Vancomycin HCl (Consult) 1 ea UD PRN N/A 04/22/17 17:45 05/22/17 17:44 Vancomycin HCl 1500 mg/Sodium Chloride 530 ml @ 200 mls/hr Q24H IV 04/23/17 14:00 05/02/17 23:59 04/27/17 13:34 200 MLS/HR Acetaminophen/ Hydrocodone Bitart ([place] 5/325 Tab) 1 tab Q4 PRN PO 04/23/17 14:30 05/07/17 14:29 04/27/17 21:56 1 TAB Acetaminophen/ Hydrocodone Bitart ([place] 5/325 Tab) 2 tab Q4 PRN PO 04/23/17 14:30 05/07/17 14:29 Losartan Potassium (coZAAR TAB) 100 mg QAM PO 04/24/17 09:00 05/24/17 08:59 04/28/17 09:51 100 MG Enoxaparin Sodium (Lovenox Inj) 40 mg QAM SQ 04/24/17 09:00 05/24/17 08:59 04/28/17 09:50 40 MG Ergocalciferol (Vitamin D Cap) 50,000 interunit Sa@0900 PO 04/24/17 16:00 05/24/17 15:59 04/24/17 17:08 50,000 INTERUNIT Hydroxyzine HCl (Vistaril Tab) 25 mg HS PRN PO 04/24/17 22:00 05/24/17 21:59 04/26/17 22:39 25 MG Aspirin (Ecotrin Tab) 81 mg HS PO 04/25/17 21:00 05/25/17 20:59 04/27/17 20:52 81 MG Ceftriaxone Sodium 2000 mg/ Dextrose 70 ml @ 100 mls/hr Q24H IV 04/25/17 18:00 06/06/17 17:59 04/27/17 18:08 100 MLS/HR Hydrochlorothiazide (Hydrochlorothiazide Tab) 12.5 mg DAILY PO 04/26/17 09:00 05/26/17 08:59 04/28/17 09:52 12.5 MG Objective Vital Signs Date Time Temp Pulse Resp B/P (MAP) Pulse Ox O2 Delivery O2 Flow Rate FiO2 04/28/17 08:18 97 Room Air 04/28/17 07:45 36.7 68 17 168/83 (111) 97 Room Air 04/27/17 23:15 Room Air 04/27/17 22:50 36.7 65 18 130/75 (93) 98 Room Air 04/27/17 20:50 69 164/76 (105) 04/27/17 15:23 37.2 69 16 127/75 (92) 98 Room Air 04/27/17 15:00 Room Air Physical Exam General Appearance: WD/WN, no apparent distress Eyes: normal inspection, EOMI, sclerae normal ENT: normal ENT inspection, pharynx normal Neck: supple, no adenopathy, thyroid normal, trachea midline Respiratory/Chest: chest non-tender, lungs clear, normal breath sounds, no respiratory distress Cardiovascular: regular rate, rhythm, no gallop, no murmur Abdomen: normal bowel sounds, non tender, soft, no organomegaly Extremities: non-tender, normal capillary refill Neurologic/Psychiatric: alert, oriented x 3 Skin: normal color, warm/dry, no rash Lymphatic: no adenopathy Laboratory Results Last 24 Hours Test 04/28/17 07:35 White Blood Count 4.28 K/uL Red Blood Count 3.34 M/uL Hemoglobin 10.3 g/dL Hematocrit 31.3 % Mean Corpuscular Volume 93.7 fL Mean Corpuscular Hemoglobin 30.8 pg Mean Corpuscular Hemoglobin Concent 32.9 g/dl RDW Standard Deviation 57.7 fL RDW Coefficient of Variation 17.1 % Platelet Count 191 K/uL Mean Platelet Volume 9.2 fL Sodium Level 133 mmol/L Potassium Level 4.1 mmol/L Chloride Level 101 mmol/L Carbon Dioxide Level 26 mmol/L Anion Gap 6.0 mmol/L Blood Urea Nitrogen 21 mg/dl Creatinine 1.12 mg/dl Est Creatinine Clear Calc Drug Dose 42.6 ml/min Estimated GFR () 53.0 Estimated GFR (Non- 45.7 BUN/Creatinine Ratio 18.9 Random Glucose 98 mg/dl Calcium Level 9.0 mg/dl Assessment and Plan 81-year-old female status post lumbar surgery with evidence of fluid collection at site of surgery, with mildly elevated sed rate and C reactive protein, no fever. Not clear whether seroma is infected or not, but given lack of systemic complaints, think the patient can be transitioned to oral antibiotics. Recommend combination of cefdinir 300 mg b.i.d. with Bactrim DS 1 b.i.d.. Likely in the range of 2-4 weeks, would like to follow up in the office in 2-3 weeks after discharge.
[2017-04-28] MEDS ORDERED: CEFDINIR 300 MG CAP PO STA (13:04)
[2017-04-28] MEDS ORDERED: SULFAMETHOXAZOLE/TRIMETHOPRIM DS 800/160MG TAB PO ONE (13:15)
[2017-04-28] MEDS ORDERED: CEFD300C3 PO (13:28)
[2017-04-28] MEDS ORDERED: MRLP17 PO (13:28)
[2017-04-28] MEDS ORDERED: SULF-302 PO (13:28)
[2017-04-28] MEDS ORDERED: ATR25 PO (13:28)
[2017-04-28] MEDS ORDERED: HYDR-5688 PO (13:28)
[2017-04-28] MEDS ORDERED: CLC100 PO (13:28)
[2017-04-28] MEDS ORDERED: NURSING VERBAL MED ORDER ONE (13:30)
--- NOTE | 2017-04-28 13:47 | Discharge Instructions ---
Discharge Instructions Date of Service Apr 28, 2017. Admission Reason for Admission: Spinal Abscess Discharge Discharge Diagnosis / Problem: Spinal Abscess vs. Seroma, lower extremity weakness Discharge Goals Goal(s): Decrease discomfort, Improve function, Diagnostic testing, Therapeutic intervention Activity Recommendations Activity Limitations: resume your previous activity . Instructions / Follow-Up Instructions / Follow-Up Please follow-up with your primary care physician after stay at [facility] Please follow-up with Infectious Disease, Dr. Tsang, in 2-3 weeks You will be discharged on Cefdinir and Bactrim DS (antibiotics) - stop other antibiotics Please follow-up with orthopedic surgery as outpatient Current Hospital Diet Patient's current hospital diet: AHA Diet (Heart Healthy) Discharge Diet Recommended Diet: AHA Diet (Heart Healthy) Pending Studies Studies pending at discharge: no Medical Emergencies . Who to Call and When: Medical Emergencies: If at any time you feel your situation is an emergency, please call 911 immediately. . Non-Emergent Contact Non-Emergency issues call your: Primary Care Provider . . "Provider Documentation" section prepared by Shelley Reeves. . VTE Core Measure Inpt VTE Proph given/why not?: Enoxaparin (Lovenox) [place] Drug Monitoring Program Search Results: patient reviewed within database, no issues identified
--- NOTE | 2017-04-28 13:50 | Progress Note ---
Subjective Date of Service: Apr 28, 2017. Subjective Pt evaluation today including: conversation w/ patient, physical exam, lab review, review of studies, review of inpatient medication list Saw/examined the patient in room 361 She is doing well today States she still has weakness and stiffness of both lower extremities minimal back pain, no drainage Denies fevers/chills Review of Systems Constitutional: + weakness, No fever, No chills Abdomen: No pain, No nausea, No vomiting, No diarrhea Neurologic: + weakness, + numbness/tingling, + balance problems, No memory loss , No paralysis, No vertigo Medications Current Inpatient Medications Medications (Trade) Dose Ordered Sig/Tomi Route Start Time Stop Time Status Last Admin Dose Admin Ondansetron HCl (Zofran Inj) 4 mg Q6H PRN IV 04/22/17 17:15 05/22/17 17:14 Carvedilol (Coreg Tab) 12.5 mg BID PO 04/22/17 21:00 05/22/17 20:59 04/28/17 09:50 12.5 MG Metronidazole (Flagyl Tab) 500 mg TID PO 04/22/17 21:00 05/02/17 20:59 04/28/17 09:51 500 MG Pravastatin Sodium (Pravachol Tab) 20 mg QPM PO 04/22/17 21:00 05/22/17 20:59 04/27/17 20:51 20 MG Ferrous Sulfate (Feosol Tab) 325 mg QAM PO 04/23/17 09:00 05/23/17 08:59 04/28/17 09:51 325 MG Morphine Sulfate (MoRPHine SULFATE INJ) 2 mg Q3H PRN IV 04/22/17 17:30 05/06/17 17:29 Docusate Sodium (coLACE CAP) 100 mg BID PO 04/22/17 21:00 05/22/17 20:59 04/26/17 09:27 100 MG Polyethylene (Miralax Powder Packet) 17 gm DAILY PO 04/23/17 09:00 05/23/17 08:59 04/24/17 08:46 17 GM Acetaminophen/ Hydrocodone Bitart ([place] 5/325 Tab) 1 tab Q4 PRN PO 04/23/17 14:30 05/07/17 14:29 04/27/17 21:56 1 TAB Acetaminophen/ Hydrocodone Bitart ([place] 5/325 Tab) 2 tab Q4 PRN PO 04/23/17 14:30 05/07/17 14:29 Losartan Potassium (coZAAR TAB) 100 mg QAM PO 04/24/17 09:00 05/24/17 08:59 04/28/17 09:51 100 MG Enoxaparin Sodium (Lovenox Inj) 40 mg QAM SQ 04/24/17 09:00 05/24/17 08:59 04/28/17 09:50 40 MG Ergocalciferol (Vitamin D Cap) 50,000 interunit Sa@0900 PO 04/24/17 16:00 05/24/17 15:59 04/24/17 17:08 50,000 INTERUNIT Hydroxyzine HCl (Vistaril Tab) 25 mg HS PRN PO 04/24/17 22:00 05/24/17 21:59 04/26/17 22:39 25 MG Aspirin (Ecotrin Tab) 81 mg HS PO 04/25/17 21:00 05/25/17 20:59 04/27/17 20:52 81 MG Hydrochlorothiazide (Hydrochlorothiazide Tab) 12.5 mg DAILY PO 04/26/17 09:00 05/26/17 08:59 04/28/17 09:52 12.5 MG Cefdinir (Omnicef Cap) 300 mg BID PO 04/28/17 21:00 06/09/17 20:59 Trimethoprim/ Sulfamethoxazole (Septra Ds 800/ 160MG Tab) 1 tab Q12 PO 04/28/17 21:00 06/09/17 20:59 Miscellaneous Information (Nursing Verbal Med Order) 1 ea ONE ONCE N/A 04/28/17 13:30 04/28/17 13:31 UNV Objective Vital Signs Date Time Temp Pulse Resp B/P (MAP) Pulse Ox O2 Delivery O2 Flow Rate FiO2 04/28/17 08:30 Room Air 04/28/17 08:18 97 Room Air 04/28/17 07:45 36.7 68 17 168/83 (111) 97 Room Air 04/27/17 23:15 Room Air 04/27/17 22:50 36.7 65 18 130/75 (93) 98 Room Air 04/27/17 20:50 69 164/76 (105) 04/27/17 15:23 37.2 69 16 127/75 (92) 98 Room Air 04/27/17 15:00 Room Air Physical Exam General Appearance: no apparent distress Respiratory/Chest: lungs clear, normal breath sounds, no respiratory distress, no accessory muscle use Cardiovascular: regular rate, rhythm, no edema, no murmur Extremities: + pertinent finding (trace pitting edema b/l LE) Neurologic/Psychiatric: no motor/sensory deficits, alert, normal mood/affect Laboratory Results Last 24 Hours Test 04/28/17 07:35 04/28/17 13:28 White Blood Count 4.28 K/uL Red Blood Count 3.34 M/uL Hemoglobin 10.3 g/dL Hematocrit 31.3 % Mean Corpuscular Volume 93.7 fL Mean Corpuscular Hemoglobin 30.8 pg Mean Corpuscular Hemoglobin Concent 32.9 g/dl RDW Standard Deviation 57.7 fL RDW Coefficient of Variation 17.1 % Platelet Count 191 K/uL Mean Platelet Volume 9.2 fL Sodium Level 133 mmol/L Potassium Level 4.1 mmol/L Chloride Level 101 mmol/L Carbon Dioxide Level 26 mmol/L Anion Gap 6.0 mmol/L Blood Urea Nitrogen 21 mg/dl Creatinine 1.12 mg/dl Est Creatinine Clear Calc Drug Dose 42.6 ml/min Estimated GFR () 53.0 Estimated GFR (Non- 45.7 BUN/Creatinine Ratio 18.9 Random Glucose 98 mg/dl Calcium Level 9.0 mg/dl Assessment and Plan This is an 81 year old female with a PMH of lumbar surgery on February 02, HTN, HLD, CAD s/p stent, chronic anemia, recent hyponatremia episode - presents with worsening lower extremity pain Post-Operative Seroma 1/3 continue PT/OT appreciate ID input change IV abx. to Cefdinir and Bactrim for around 4 weeks outpatient f/u with ID in 2-3 weeks outpatient orthopedic surgery f/u plan to d/c to [place] today 1/2 RLE weakness, possibly secondary to seroma orthopedic surgery recommends conservative management PT/OT - rehab when stable appreciate ID input - for now on Rocephin + Vancomycin + Flagyl will need oral abx. upon discharge HTN sodium stable continue HCTZ and Cozaar BP improving CAD s/p stents continue current home medications; aspirin, b-jacy, Cozaar Chronic Anemia Hgb stable DVT ppx Lovenox FULL CODE
--- NOTE | 2017-04-28 13:53 | Discharge Summary ---
Discharge Summary Date of Service Apr 28, 2017. Discharge Summary Admission Date: Apr 22, 2017 at 15:55 Discharge Date: Apr 28, 2017 Discharge Disposition: alf facility Principal Diagnosis: Spinal Seroma vs. Abscess HTN Consultations: Ortho Spine-[facility] Medication Reconciliation New Medications: Cefdinir (Cefdinir) 300 Mg Cap 300 MG PO BID for 28 Days, #56 CAP Docusate Sodium (Docusate Sodium) 100 Mg Cap 100 MG PO BID for 30 Days, #60 CAP Hydrocodone/Acetaminophen 5MG/325MG ([place] 5MG/325MG) Tab 1 TAB PO Q4 PRN for Pain for 5 Days, #30 TAB PRN PAIN Hydroxyzine HCl (Hydroxyzine HCl) 25 Mg Tab 25 MG PO HS PRN for insomnia for 5 Days, #5 TAB Polyethylene (Miralax) 17 Gm Pow 17 GM PO DAILY for 30 Days Sulfamethoxazole-Trimethoprim (Smz-Tmp Ds) 1 Tab Tab 1 TAB PO Q12 for 28 Days, #56 TAB Continued Medications: Aspirin (Aspirin Ec) 81 Mg Tab 81 MG PO DAILY Carvedilol (Coreg) 12.5 Mg Tab 12.5 MG PO BID, TAB Ferrous Sulfate (Iron Slow Release) 143 Mg Tab 1 TAB PO QAM Hctz/Losartan (Hyzaar 12.5MG/100MG) 1 Tab Tab 1 TAB PO QAM Lorazepam (Ativan) 0.5 Mg Tab 0.5 MG PO HS PRN for RN, TAB Oxycodone HCl (Oxycodone HCl) 5 Mg Tab 5-10 MG PO Q4H PRN for Moderate - severe pain, #90 TAB Pravastatin (Pravachol ) 20 Mg Tab 20 MG PO QPM, TAB Discontinued Medications: Metronidazole (Flagyl) 500 Mg Tab 500 MG PO TID, TAB Admission Information HPI (per Admitting provider): DATE OF ADMISSION: 04/22/2017 PRIMARY CARE PHYSICIAN: Ekta Ansari CHIEF COMPLAINT: The patient was transferred from [facility] with lumbar seroma status post back surgery and also increasing pain and leg weakness. HISTORY OF PRESENT COMPLAINT: She is an 81-year-old female with significant past medical history of hypertension, CAD status post cardiac stent placement in 2004 without any cardiac symptoms, hyperlipidemia and chronic back pain, apparently was in [facility] from Wednesday. She was admitted to there with fall about 3 times, injuring her knees on Wednesday and when she was there, she was noted to have hyponatremia of 113 and she did have x-rays of the knees and those were unremarkable except the pelvis unremarkable, no fracture. Her hyponatremia was corrected and she has had problem with back pain and she also complained to have numbness involving both the legs. She underwent an MRI of the lumbar spine at [facility] and the MRI is reported as significant amount of hardware artifact limited evaluation, suggestion of extradural fluid collection posteriorly in the canal, extending from L3-L4 level to L5 level. From that point, she was transferred to [facility] for continuation of the care. Apparently, she underwent lumbar surgery on February 02 and following that she was doing reasonably good until Wednesday last and even before that when she was complaining of more pain while moving around with a walker and also she complained some numbness involving both the legs. Her ambulation has been limited due to numbness in the legs as she feels and also keeps falling and on top of that, she was noted to have hyponatremia which is being corrected as of today. She denies to have any chest pain, shortness of breath, palpitations. She does not have any fever, chills or rigors. She does not have any abdominal pain, nausea and/or vomiting. She denies to have any problem with urine and/or bowel habit. She complains to have numbness in the legs and leg heaviness, but she does not have any severe arthritis involving any of the joint and she also complains to have back pain without radiation of the pain to the legs. PAST MEDICAL HISTORY: Significant for hypertension; CAD status post cardiac stent placement, details of that is unknown, but that was 2004 and she has been asymptomatic since then and she has high cholesterol as well. PAST SURGICAL HISTORY: Cardiac stent placement, bilateral knee replacement and also malignant breast lumpectomy and status post radiation treatment in 1986. ALLERGIES: CIPRO. MEDICATIONS: At [facility], she was receiving morphine 4 mg q. 3 hourly p.r.n., Coreg 12.5 mg b.i.d., aspirin 81 mg daily, docusate sodium 100 mg twice daily, Flagyl 500 mg q. 8 hourly, heparin 5000 units twice daily, hydrocodone/Vicodin 5/300 one tablet q. 6 hourly p.r.n., senna 17.2 mg as directed, Zofran 4 mg q. 6 hourly p.r.n. and Tylenol 650 mg q. 6 hourly p.r.n. FAMILY HISTORY: Significant that brother has diabetes and also has an ischemic chronic CAD and his son has CAD as well. SOCIAL HISTORY: She is a . She lives alone. Her mobility has been decreased recently due to back pain and leg heaviness. She does not smoke and she does not drink. REVIEW OF SYSTEMS: Other systems reviewed are unremarkable except those mentioned in history of present complaint. PHYSICAL EXAMINATION: GENERAL: On examination on the medical floor, she was not having any acute distress. VITAL SIGNS: Temperature 36.6, pulse of 75, blood pressure 160/90, saturation 97% on room air. HEENT: Unremarkable. NECK: Supple. No JVD, no bruit. CHEST: Clear to auscultate bilaterally. HEART: S1, S2 regular, no murmur. ABDOMEN: Soft, benign, nontender, no organomegaly. Bowel sounds present. EXTREMITIES: She has 1+ edema, seems to be chronic bilaterally and she has bruising involving both the knee areas, more on the right than on the left. MUSCULOSKELETAL: She does not have any acute arthritis involving any of the joints. CENTRAL NERVOUS SYSTEM: She is alert, awake, oriented x3. She does not have any focal sensory and/or motor deficit on clinical examination, but she cannot lift her legs most likely because of the heaviness of the legs, but again no sensory impairment noted. BACK: Did show a bandaged area on the lower lumbar area with some soaking of the bandage. LABORATORY AND IMAGING DATA: Pending from this hospital - CBC, PRP, INR, PTT, but sodium noted to be 134 today at [facility]. Again, white count recorded as 5.8, hemoglobin 9.3, hematocrit 26.5, platelets 189. Sodium 137. She had an MRI at the lumbar spine, the report that was stated in the history of present complaint. Chest x-ray, no acute cardiopulmonary findings. Both the knee x-rays, no fracture. Pelvis x-ray, no fracture. EKG was in sinus rhythm, rate of 62, normal axis and no significant ST-T wave changes. IMPRESSION AND PLAN: 1. Chronic back pain with acute exacerbation, status post lumbar surgery in February 02. MRI shows a collection of fluid, most likely seroma, but no signs or symptoms of spinal involvement. She does not have any fever or chills. But will cover her with IV vancomycin on top of the oral medications that she has been taking. Wound care consult. Orthopedic has been consulted, most likely she will go for I&D tomorrow. She will be kept n.p.o. after midnight.Discussed with Dr Dumont. 2. Hypertension. Blood pressure seems to be on the upper side. Will continue with her current medications for blood pressure. Will hold Hyzaar due to recent Hyponatremia. 3.Hyponatremia ,now corrected.Was admitted to [facility] on Wednesday with hyponatremia of 113 and falls.Hyponatremia has been corrected as of today . Hyponatremia suspected due to HCTZ and may have been poor intake as well. 4. Coronary artery disease status post stent placement. No acute symptoms. Continue current medications. 5. High cholesterol. Continue home medication. 6. Gastrointestinal prophylaxis. Maalox and Mylanta as needed. 7. Deep venous thrombosis prophylaxis, has been on subQ heparin. Continue with that. 8. Code status. Full code for now . In my clinical judgment, the beneficiary meets criteria as per CMS for 2-midnight stay in the hospital. Hospital Course This is an 81 year old female with a PMH of lumbar surgery on February 02, HTN, HLD, CAD s/p stent, chronic anemia, recent hyponatremia episode - presents with worsening lower extremity pain Post-Operative Seroma 1/3 continue PT/OT appreciate ID input change IV abx. to Cefdinir and Bactrim for around 4 weeks outpatient f/u with ID in 2-3 weeks outpatient orthopedic surgery f/u plan to d/c to [place] today 1/2 RLE weakness, possibly secondary to seroma orthopedic surgery recommends conservative management PT/OT - rehab when stable appreciate ID input - for now on Rocephin + Vancomycin + Flagyl will need oral abx. upon discharge HTN sodium stable continue HCTZ and Cozaar BP improving CAD s/p stents continue current home medications; aspirin, b-jacy, Cozaar Chronic Anemia Hgb stable DVT ppx Lovenox FULL CODE Total time spent on discharge = 45 minutes This includes examination of the patient, discharge planning, medication reconciliation, and communication with other providers. Discharge Instructions Please follow-up with your primary care physician after stay at [place] Please follow-up with Infectious Disease, Dr. Tsang, in 2-3 weeks You will be discharged on Cefdinir and Bactrim DS (antibiotics) - stop other antibiotics Please follow-up with orthopedic surgery as outpatient
[2017-04-28 14:03] VITALS: BP 168/83; PULSE 68; TEMP 36.7; O2SAT 97
[2017-04-28] MEDS ORDERED: CEFDINIR 300 MG CAP PO SCH (21:00)
[2017-04-28] MEDS ORDERED: SULFAMETHOXAZOLE/TRIMETHOPRIM DS 800/160MG TAB PO SCH (21:00)
== END 2017-04-28 15:11 | DRG 920 ==
LOC: C.MSW 15:55
PROVIDERS: ADMIT Internal Medicine; ATTEND Family Medicine
DX: M96.842 Postprocedural seroma of a musculoskeletal structure following a musculoskeletal system procedure (principal); T81.4XXA Infection following a procedure, initial encounter; E87.1 Hypo-osmolality and hyponatremia; D62 Acute posthemorrhagic anemia; Y83.9 Surgical procedure, unspecified as the cause of abnormal reaction of the patient, or of later complication, without mention of misadventure at the time of the procedure; G89.29 Other chronic pain; M62.81 Muscle weakness (generalized); R29.6 Repeated falls; I10 Essential (primary) hypertension; I25.10 Atherosclerotic heart disease of native coronary artery without angina pectoris; E78.5 Hyperlipidemia, unspecified; D63.8 Anemia in other chronic diseases classified elsewhere; Z98.1 Arthrodesis status; Z95.5 Presence of coronary angioplasty implant and graft; Z85.3 Personal history of malignant neoplasm of breast; Z92.3 Personal history of irradiation; Z96.653 Presence of artificial knee joint, bilateral; Z79.82 Long term (current) use of aspirin; Z79.899 Other long term (current) drug therapy; Z88.1 Allergy status to other antibiotic agents; Z82.49 Family history of ischemic heart disease and other diseases of the circulatory system; Z83.3 Family history of diabetes mellitus; F43.22 Adjustment disorder with anxiety; G47.9 Sleep disorder, unspecified

== ENCOUNTER → 2017-07-12 | Outpatient (CLI) | payer OTHER ==
[~2017-07-12] MED LIST changes: +ASPI81TA28 PO; +ATR25 PO; +CEFD300C3 PO; +CLC100 PO; +HYDR-5688 PO; +MRLP17 PO; +SULF-302 PO
[2017-07-12 12:13] LABS: BASO % 0.4 %; BASO ABS # 0.02 K/uL (0-0.2); EOS % 1.9 %; HEMATOCRIT 36.8 % (37-47); IG# 0.01 K/uL (0.00-0.02); LYMPH % 21.5 %; LYMPH ABS # 1.11 K/uL (1.2-3.4); MEAN CELL VOLUME 94.6 fL (80-100); MEAN CORPUSCULAR HEMOGLOBIN 30.8 pg (25-34); MEAN CORPUSCULAR HGB CONC 32.6 g/dl (32-36); MONO % 6.4 %; MONO ABS # 0.33 K/uL (0.11-0.59); NEUT % 69.6 %; PLATELET COUNT 198 K/uL (130-400); RED CELL DISTRIBUTION WIDTH CV 14.4 % (11.5-14.5); RED CELL DISTRIBUTION WIDTH SD 48.7 fL (36.4-46.3); WHITE BLOOD COUNT 5.17 K/uL (4.8-10.8)
[2017-07-12 12:44] LABS: ALBUMIN 3.3 gm/dl (3.4-5.0); ALT/SGPT 27 U/L (12-78); BLOOD UREA NITROGEN 31 mg/dl (7-18); CARBON DIOXIDE 28 mmol/L (21-32); CREATININE 1.14 mg/dl (0.60-1.20); GLUCOSE 92 mg/dl (70-99); POTASSIUM 4.1 mmol/L (3.5-5.1); SODIUM 138 mmol/L (136-145)
[2017-07-12 12:47] LABS: ALKALINE PHOSPHATASE 57 U/L (45-117); AST/SGOT 23 U/L (15-37); TOTAL PROTEIN 6.8 gm/dl (6.4-8.2)
== END | disposition home or self-care (01) ==
LOC: C.LAB1850 10:57
PROVIDERS: ATTEND Internal Medicine Infectious Disease
DX: G06.1 Intraspinal abscess and granuloma (principal)